=== PATIENT | female | born 1970 | race Caucasian/White ===

== ENCOUNTER 2021-12-21 10:30 | Emergency (ER) | payer MEDICAID, OTHER ==
[~2021-12-21] VITALS: Ht 165.1 cm; Wt 62.1 kg
[~2021-12-21 10:30] MED LIST: [UNRECOGNIZED DRUG - CODE]
[2021-12-21 10:32] VITALS: BP 157/88
--- NOTE | 2021-12-21 10:38 | NUR ---
pt ambulated to bed 04 with walker
--- NOTE | 2021-12-21 10:54 | NUR ---
51 y/o female came in for swelling to bilateral feet. Patient states "she started having swelling in bilateral feet and is now radiating to upper thighs for 5-6 months." Patient was told she has neuropathy by PCP. Patient is noted with edema to bilateral legs. Patient feet are warm and dry with no heat radiating from them. Medical History: DM Type 2 Allergy: tylenol with codeine (hives)
--- NOTE | 2021-12-21 10:55 | NUR ---
Dr. Lozano at bedside evaluating patient.
--- NOTE | 2021-12-21 11:05 | NUR ---
Dr. Lozano performing ultrasound at bedside.
--- NOTE | 2021-12-21 11:13 | NUR ---
CPT Maryam at bedside drawing labs.
--- NOTE | 2021-12-21 11:20 | NUR ---
X-Ray at bedside.
[2021-12-21 11:29] LABS: BASOPHILS % (AUTO) 0.4 % (0.0-2.0); EOSINOPHILS # (AUTO) 0.1 K/uL (0-0.4); EOSINOPHILS % (AUTO) 1.2 % (0.0-4.0); HEMOGLOBIN 10.3 g/dL (12.0-16.0); LYMPHOCYTES # (AUTO) 1.2 K/uL (2.5-16.5); LYMPHOCYTES % (AUTO) 23.6 % (20.5-51.1); MEAN CORPUSCULAR HEMOGLOBIN 29 pg (27-31); MEAN CORPUSCULAR HGB CONC 35 g/dL (33-37); MEAN CORPUSCULAR VOLUME 81.8 fL (80-94); MONOCYTES # (AUTO) 0.2 K/uL (0.8-1.0); NEUTROPHILS # (AUTO) 3.5 K/uL (1.8-7.7); NEUTROPHILS % (AUTO) 70.8 % (42.2-75.2); PLATELET COUNT (AUTO) 286 K/uL (140-450); RED BLOOD CELL COUNT(AUTO) 3.55 MIL/uL (4.20-5.40); RED CELL DISTRIBUTION WIDTH 14.2 % (11.6-13.7)
[2021-12-21] MEDS ORDERED: FUROSEMIDE 40 MG TAB PO ONE (11:40)
[2021-12-21 11:50] LABS: ALBUMIN 1.7 g/dL (3.4-5.0); CARBON DIOXIDE 28.4 mmol/L (21-32); TOTAL BILIRUBIN 0.5 mg/dL (0.0-1.0)
[2021-12-21 11:51] LABS: CREATININE 0.6 mg/dL (0.6-1.3)
[2021-12-21 11:54] LABS: ANION GAP 8.8 (8-16); POTASSIUM 3.2 mmol/L (3.5-5.1)
[2021-12-21] MEDS ORDERED: POTASSIUM CHLORIDE 10 MEQ TABER PO ONE (12:00)
[2021-12-21] MEDS ORDERED: CALCIUM CARB 600 MG TAB PO SCH (12:00)
[2021-12-21] MEDS ORDERED: INSULIN REGULAR, HUMAN 100 UNIT/ML VIAL IVP ONE (12:00)
[2021-12-21] MEDS ORDERED: GABA300C PO (12:17)
[2021-12-21 13:12] VITALS: BP 143/79
--- NOTE | 2021-12-21 13:12 | NUR ---
Patient discharged with v/s stable. Written and verbal after care instructions given. Patient alert, oriented and verbalized understanding of instructions. Ambulatory with steady gait. All questions addressed prior to discharge. ID band removed. Patient advised to follow up with PMD. Rx of Gabapentin given. Opportunity to ask questions provided and answered.
== END 2021-12-21 13:12 | disposition home or self-care (01) ==
LOC: MED 10:30
DX: R60.0 Localized edema (principal); E11.40 Type 2 diabetes mellitus with diabetic neuropathy, unspecified; I10 Essential (primary) hypertension; E78.5 Hyperlipidemia, unspecified; D64.9 Anemia, unspecified; E83.51 Hypocalcemia; E87.6 Hypokalemia; E88.09 Other disorders of plasma-protein metabolism, not elsewhere classified; Z79.4 Long term (current) use of insulin; Z88.5 Allergy status to narcotic agent
CPT/HCPCS: 36415; 71045; 80053; 83880; 85025; 96374; 99284; J1815

== ENCOUNTER 2021-12-28 09:17 | Emergency (ER) | payer OTHER ==
[~2021-12-28] VITALS: Ht 165.1 cm; Wt 61.2 kg
[~2021-12-28 09:17] MED LIST changes: +GABA300C PO
[2021-12-28 09:19] VITALS: BP 160/91
[2021-12-28] MEDS ORDERED: KETOROLAC 15 MG/ML VIAL IVP ONE ×2 (09:45→13:05)
[2021-12-28] MEDS ORDERED: NACL 0.9% 1,000 ML IV ONE ×2 (09:45→15:20)
[2021-12-28] MEDS ORDERED: ACETAMINOPHEN EXTRA STRENGTH 500 MG TAB PO ONE (09:45)
[2021-12-28] MEDS ORDERED: LIDOCAINE 5% 1 EA PATCH TP SCH (09:50)
[2021-12-28 10:05] LABS: BASOPHILS % (AUTO) 0.4 % (0.0-2.0); EOSINOPHILS # (AUTO) 0.1 K/uL (0-0.4); EOSINOPHILS % (AUTO) 0.7 % (0.0-4.0); HEMATOCRIT 30.4 % (36-48); HEMOGLOBIN 10.6 g/dL (12.0-16.0); LYMPHOCYTES # (AUTO) 0.9 K/uL (2.5-16.5); LYMPHOCYTES % (AUTO) 9.7 % (20.5-51.1); MEAN CORPUSCULAR HEMOGLOBIN 29 pg (27-31); MEAN CORPUSCULAR HGB CONC 35 g/dL (33-37); MEAN CORPUSCULAR VOLUME 82.5 fL (80-94); MONOCYTES # (AUTO) 0.4 K/uL (0.8-1.0); MONOCYTES % (AUTO) 4.8 % (1.7-9.3); NEUTROPHILS # (AUTO) 7.8 K/uL (1.8-7.7); NEUTROPHILS % (AUTO) 84.4 % (42.2-75.2); PLATELET COUNT (AUTO) 335 K/uL (140-450); RED BLOOD CELL COUNT(AUTO) 3.69 MIL/uL (4.20-5.40); RED CELL DISTRIBUTION WIDTH 13.8 % (11.6-13.7); WHITE BLOOD COUNT (AUTO) 9.2 K/uL (4.8-10.8)
[2021-12-28 10:44] LABS: ALBUMIN 1.8 g/dL (3.4-5.0); ANION GAP 12.1 (8-16); CARBON DIOXIDE 26.1 mmol/L (21-32); CREATININE 0.7 mg/dL (0.6-1.3); POTASSIUM 3.2 mmol/L (3.5-5.1); TOTAL BILIRUBIN 0.7 mg/dL (0.0-1.0)
[2021-12-28 11:26] LABS: APPEARANCE,URINE HAZY (CLEAR); BILIRUBIN,URINE NEGATIVE (NEGATIVE); BLOOD, URINE 2+ (NEGATIVE); COLOR,URINE YELLOW (YELLOW); LEUKOCYTE ESTERASE ,URINE NEGATIVE (NEGATIVE); NITRITE, URINE NEGATIVE (NEGATIVE); UGLUCOSE 3+ (NEGATIVE)
[2021-12-28] MEDS ORDERED: POTASSIUM CHLORIDE 10 MEQ TABER PO ONE (11:35)
[2021-12-28 11:36] LABS: WBC,URINE 0-5 /HPF (0-5)
[2021-12-28 11:54] VITALS: BP 156/67
[2021-12-28] MEDS ORDERED: ACET-10509 PO (13:06)
[2021-12-28] MEDS ORDERED: LID5T TP (13:06)
[2021-12-28] MEDS ORDERED: NAPR-54 PO (13:06)
[2021-12-28] MEDS ORDERED: INSULIN LISPRO 100 UNITS/ML VIAL SUBQ ONE (13:20)
== END 2021-12-28 15:30 | disposition home or self-care (01) ==
LOC: MED 09:17
DX: S32.029A Unspecified fracture of second lumbar vertebra, initial encounter for closed fracture (principal); E11.65 Type 2 diabetes mellitus with hyperglycemia; Z88.5 Allergy status to narcotic agent; Z98.890 Other specified postprocedural states; Z79.4 Long term (current) use of insulin; W19.XXXA Unspecified fall, initial encounter; Y93.89 Activity, other specified; Y92.89 Other specified places as the place of occurrence of the external cause; Y99.8 Other external cause status
CPT/HCPCS: 36415; 72131; 80053; 81001; 82150; 83605; 83690; 85025; 87040; 96361; 96372; 96374; 96375; 99284; J1815; J1885; J7030

== ENCOUNTER 2022-04-04 13:31 | Emergency (ER) | payer OTHER ==
[~2022-04-04] VITALS: Ht 157.5 cm; Wt 81.6 kg
[~2022-04-04 13:31] MED LIST changes: +ACET-10509 PO; +ATOR10TA PO; +FERR325E14 PO; +FURO-570 PO; +LID5T TP; +NAPR-54 PO; +POTA8TAB19 PO
[2022-04-04 14:07] VITALS: BP 144/83
--- NOTE | 2022-04-04 14:11 | NUR ---
PT AMB TO BED 8.
--- NOTE | 2022-04-04 14:30 | NUR ---
52YO FEMALE PT C/O SHARP/CRAMPING 10/10 LOWER AND EPIGASTRIC ABDOMINAL PAIN X2 DAYS. PT STATES SHE HAS HAD CONSISTENT PAIN AND MILD RELIEF AFTER TAKING TYLENOL. PT ABDOMEN TENDER TO TOUCH , NON DISTENDED , ACTIVE X4. PT STATES MILD NAUSEA AT THIS TIME, DENIES V/D OR DYSURIA . PT ALSO C/O SHARP 10/10 LOWER BACK PAIN DUE TO LUMBER FRACTURE BACK IN DECEMBER. PT DENIES RECENT NEW INJURY OR PHYSICAL ACTIVITY. BACK NON TENDER TO TOUCH, PT UNABLE TO BEND AT WAIST. PT AMBULATES W/ ASSIST USING WALKER. PT AAOX4, IN VISIBLE DISTRESS AND RUBBING ABDOMEN FOR COMFORT. RESPIRATIONS EVEN AND UNLABORED. HOB POSITIONED PER PT COMFORT. HX: DIABETES
--- NOTE | 2022-04-04 15:12 | NUR ---
PT AMBULATED W/WALKER TO RESTROOM
[2022-04-04 15:14] LABS: BASOPHILS % (AUTO) 0.2 % (0.0-2.0); EOSINOPHILS # (AUTO) 0.1 K/uL (0-0.4); EOSINOPHILS % (AUTO) 1.5 % (0.0-4.0); HEMATOCRIT 26.6 % (36-48); HEMOGLOBIN 9.2 g/dL (12.0-16.0); LYMPHOCYTES # (AUTO) 1.7 K/uL (2.5-16.5); MEAN CORPUSCULAR HEMOGLOBIN 29 pg (27-31); MEAN CORPUSCULAR HGB CONC 35 g/dL (33-37); MEAN CORPUSCULAR VOLUME 82.4 fL (80-94); MONOCYTES # (AUTO) 0.3 K/uL (0.8-1.0); NEUTROPHILS # (AUTO) 3.7 K/uL (1.8-7.7); NEUTROPHILS % (AUTO) 64.3 % (42.2-75.2); PLATELET COUNT (AUTO) 300 K/uL (140-450); RED BLOOD CELL COUNT(AUTO) 3.23 MIL/uL (4.20-5.40); RED CELL DISTRIBUTION WIDTH 15.9 % (11.6-13.7); WHITE BLOOD COUNT (AUTO) 5.8 K/uL (4.8-10.8)
[2022-04-04 15:32] LABS: ALBUMIN 2.2 g/dL (3.4-5.0); ANION GAP 9.3 (8-16); CARBON DIOXIDE 23.9 mmol/L (21-32); CREATININE 0.9 mg/dL (0.6-1.3); POTASSIUM 4.2 mmol/L (3.5-5.1); TOTAL BILIRUBIN 0.5 mg/dL (0.0-1.0)
[2022-04-04] MEDS ORDERED: KETOROLAC 30 MG/ML VIAL IM ONE (16:00)
[2022-04-04] MEDS ORDERED: LID5T TP (16:16)
[2022-04-04] MEDS ORDERED: TRAM50TA1 PO (16:18)
[2022-04-04] MEDS ORDERED: CEPH-588 PO (16:22)
[2022-04-04 16:30] VITALS: BP 140/80
--- NOTE | 2022-04-04 16:34 | NUR ---
Patient discharged with v/s stable. Written and verbal after care instructions given and explained. Patient alert, oriented and verbalized understanding of instructions. Ambulatory with steady gait. All questions addressed prior to discharge. ID band removed. Patient advised to follow up with PMD. Rx of KEFLEX,LIDODERM,ULTRAM given. Patient educated on indication of medication including possible reaction and side effects. Opportunity to ask questions provided and answered.
== END 2022-04-04 16:30 | disposition home or self-care (01) ==
LOC: MED 13:31
DX: R10.9 Unspecified abdominal pain (principal); M54.50 Low back pain, unspecified; R31.9 Hematuria, unspecified; E11.9 Type 2 diabetes mellitus without complications; Z88.5 Allergy status to narcotic agent; Z79.4 Long term (current) use of insulin; Z79.899 Other long term (current) drug therapy
CPT/HCPCS: 36415; 74176; 80053; 81002; 81025; 83690; 85025; 96372; 99284; J1885

== ENCOUNTER 2022-04-26 11:31 | Emergency (ER) | payer OTHER ==
[~2022-04-26] VITALS: Ht 157.5 cm; Wt 92.1 kg
[~2022-04-26 11:31] MED LIST changes: +CEPH-588 PO; +TRAM50TA1 PO
[2022-04-26 11:41] VITALS: BP 116/80
--- NOTE | 2022-04-26 11:46 | NUR ---
PT AMBULATED WITH WALKER TO BED 10
--- NOTE | 2022-04-26 12:00 | NUR ---
52 Y/O FEMALE W/ C/O CHEST PAIN X 2 DAYS. REPORTS CHEST PAIN DOES NOT RADIATE AND "FEELS LIKE NEEDLES" RATING 9/10. REPORTS TINGLING SENSATION IN ALL EXTREMITIES. DENIES SOB, FEVER, CHILLS, NVD, DYSURIA. TOOK TYLENOL YESTERDAY WITH NO RELIEF. SKIN IS WARM AND DRY, +2 PITTING EDEMA TO BLE. RESPIRATIONS EVEN AND UNLABORED. PLACED IN GOWN AND ON ACCOUNT CONTACT ASSOCIATE. PMH: DM ALL: CODEINE
--- NOTE | 2022-04-26 12:10 | NUR ---
LAB AT BEDSIDE
[2022-04-26 12:30] LABS: BASOPHILS % (AUTO) 0.5 % (0.0-2.0); EOSINOPHILS # (AUTO) 0.1 K/uL (0-0.4); EOSINOPHILS % (AUTO) 1.6 % (0.0-4.0); HEMATOCRIT 27.7 % (36-48); HEMOGLOBIN 9.6 g/dL (12.0-16.0); LYMPHOCYTES # (AUTO) 1.6 K/uL (2.5-16.5); LYMPHOCYTES % (AUTO) 28.3 % (20.5-51.1); MEAN CORPUSCULAR HEMOGLOBIN 29 pg (27-31); MEAN CORPUSCULAR HGB CONC 35 g/dL (33-37); MEAN CORPUSCULAR VOLUME 82.8 fL (80-94); MONOCYTES # (AUTO) 0.3 K/uL (0.8-1.0); MONOCYTES % (AUTO) 5.9 % (1.7-9.3); NEUTROPHILS # (AUTO) 3.6 K/uL (1.8-7.7); NEUTROPHILS % (AUTO) 63.7 % (42.2-75.2); PLATELET COUNT (AUTO) 325 K/uL (140-450); RED BLOOD CELL COUNT(AUTO) 3.35 MIL/uL (4.20-5.40); RED CELL DISTRIBUTION WIDTH 15.6 % (11.6-13.7); WHITE BLOOD COUNT (AUTO) 5.7 K/uL (4.8-10.8)
[2022-04-26 12:35] LABS: ALBUMIN 2.5 g/dL (3.4-5.0); ANION GAP 10.6 (8-16); ASPARTATE AMINOTRANSFERASE 26 U/L (15-37); CARBON DIOXIDE 23.7 mmol/L (21-32); CHLORIDE 109 mmol/L (98-107); CREATININE 0.8 mg/dL (0.6-1.3); GFR ARICAN-AMERICAN 98 mL/min (>90); GLUCOSE 203 mg/dL (74-106); POTASSIUM 4.3 mmol/L (3.5-5.1); SODIUM SERUM 139 mmol/L (136-145); TOTAL BILIRUBIN 0.5 mg/dL (0.0-1.0); UREA NITROGEN, BLOOD 33 mg/dL (7-18)
--- NOTE | 2022-04-26 13:13 | NUR ---
PT AMBULATED TO BATHROOM WITH ASSISTIVE DEVICE (WALKER)
[2022-04-26] MEDS ORDERED: ACETAMINOPHEN EXTRA STRENGTH 500 MG TAB PO ONE (13:35)
[2022-04-26] MEDS ORDERED: IBUP-2213 PO (15:03)
[2022-04-26 15:15] VITALS: BP 177/89
== END 2022-04-26 15:15 | disposition home or self-care (01) ==
LOC: MED 11:31
DX: R07.89 Other chest pain (principal); E11.9 Type 2 diabetes mellitus without complications; Z88.5 Allergy status to narcotic agent; Z79.899 Other long term (current) drug therapy; Z79.4 Long term (current) use of insulin
CPT/HCPCS: 36415; 71045; 80053; 81025; 84484; 84702; 85025; 85379; 93005; 99285

== ENCOUNTER 2023-03-26 11:15 | Inpatient (IN) | payer OTHER ==
[~2023-03-26] VITALS: Ht 167.6 cm; Wt 72.6 kg
[~2023-03-26 11:15] MED LIST changes: +IBUP-2213 PO; +TRAM-748 PO; -TRAM50TA1 PO
--- NOTE | 2023-03-26 11:29 | NUR ---
Patient was wheelchair assisted to bed 4.
--- NOTE | 2023-03-26 11:29 | NUR ---
PATIENT WHEELCHAIR ASSIST TO ER BED 04
[2023-03-26] MEDS ORDERED: HYDROcodone/APAP 10/325 MG 1 TAB TAB PO PRN (11:30)
[2023-03-26 11:38] VITALS: BP 121/68; PULSE 68; RESP 20; TEMP 98.1; O2SAT 98
--- NOTE | 2023-03-26 11:40 | NUR ---
Patient was assisted to bedpan.
--- NOTE | 2023-03-26 11:45 | NUR ---
Patient was taken to CT via [facility].
--- NOTE | 2023-03-26 11:55 | NUR ---
Patient returned from CT.
[2023-03-26] MEDS ORDERED: MORPHINE SULFATE 4 MG/ML SYR IM ONE (12:00)
[2023-03-26] MEDS ORDERED: MORPHINE SULFATE 4 MG/ML SYR IVP ONE (13:40)
[2023-03-26] MEDS ORDERED: NACL 0.9% 500 ML IV ONE (13:40)
--- NOTE | 2023-03-26 13:48 | NUR ---
Dr. Hernandez re-evaluating patient at bedside.
[2023-03-26 13:49] LABS: ALBUMIN 1.1 g/dL (3.4-5.0); ANION GAP 14.3 (8-16); CARBON DIOXIDE 21.2 mmol/L (21-32); POTASSIUM 4.5 mmol/L (3.5-5.1); TOTAL BILIRUBIN 0.2 mg/dL (0.0-1.0)
[2023-03-26] MEDS ORDERED: NOV7030 SUBQ ×2 (14:24)
--- NOTE | 2023-03-26 14:24 | NUR ---
med rec complete.
[2023-03-26 14:38] LABS: BASOPHILS % (AUTO) 0.3 % (0.0-2.0); EOSINOPHILS # (AUTO) 0.1 K/uL (0-0.4); EOSINOPHILS % (AUTO) 2.1 % (0.0-4.0); HEMATOCRIT 24.3 % (36-48); HEMOGLOBIN 8.4 g/dL (12.0-16.0); LYMPHOCYTES # (AUTO) 1.6 K/uL (2.5-16.5); LYMPHOCYTES % (AUTO) 28.1 % (20.5-51.1); MEAN CORPUSCULAR HEMOGLOBIN 28 pg (27-31); MEAN CORPUSCULAR HGB CONC 34 g/dL (33-37); MEAN CORPUSCULAR VOLUME 82.1 fL (80-94); MONOCYTES # (AUTO) 0.4 K/uL (0.8-1.0); MONOCYTES % (AUTO) 6.5 % (1.7-9.3); NEUTROPHILS # (AUTO) 3.6 K/uL (1.8-7.7); PLATELET COUNT (AUTO) 292 K/uL (140-450); RED BLOOD CELL COUNT(AUTO) 2.96 MIL/uL (4.20-5.40); RED CELL DISTRIBUTION WIDTH 13.5 % (11.6-13.7); WHITE BLOOD COUNT (AUTO) 5.7 K/uL (4.8-10.8)
--- NOTE | 2023-03-26 16:06 | NUR ---
Patient was offered snacks.
[2023-03-26] MEDS ORDERED: ACETAMINOPHEN 325 MG TAB PO PRN (17:20)
[2023-03-26] MEDS ORDERED: LORazepam 1 MG TAB PO PRN (17:20)
[2023-03-26] MEDS ORDERED: ZOLPIDEM 5 MG TAB PO PRN (17:20)
[2023-03-26] MEDS ORDERED: CLINICAL MONITORING MC PRN (18:10)
--- NOTE | 2023-03-26 18:36 | NUR ---
Dr. Chong, admitting doctor, evaluating patient at bedside.
--- NOTE | 2023-03-26 18:45 | NUR ---
Patient was offered dinner tray, patient is sitting up eating.
[2023-03-26] MEDS: ONDANSETRON 4 MG/2 ML VIAL IVP PRN ×2 (18:53→20:36)
--- NOTE | 2023-03-26 19:24 | NUR ---
Pt report given to MUNDO Nuñez. Transfer of care at this time.
--- NOTE | 2023-03-26 20:15 | NUR ---
Patient will be admitted to care of Dr. Chong. Admited to [facility]. Will go to room 107A. Belongings list completed. Report to Leonides FLOWER.
[2023-03-26 20:42] VITALS: BP 159/88; PULSE 76; RESP 18; TEMP 96.6; O2SAT 99
--- NOTE | 2023-03-26 20:42 | NUR ---
RECEIVED REPORT FROM ER NURSE FOR CONTINUITY OF CARE. PT ARRIVED ON MST UNIT VIA GURNEY. PT IS AWAKE, A&O X4. CURRENTLY ON ROOM AIR WITH NO SIGNS OF ACUTE RESPIRATORY DISTRESS NOTED. PATIENT IS ON BEDREST AT THIS TIME DUE TO HIP FRACTURE. IV SITE LOCATED AT LEFT AC 20 GAUGE, SALINE LOCK, FLUSHED FOR PATENCY. ORIENTED PATIENT TO BEDROOM, BED CONTROLS, AND CALL LIGHT CONTROLS. WILL MONITOR PATIENT THROUGHOUT SHIFT AND IMPLEMENT PAIN MANAGEMENT INTERVENTIONS NEEDED.
[2023-03-26 20:50] VITALS: O2SAT 99
--- NOTE | 2023-03-27 01:00 | NUR ---
PT SLEEPING COMFORTABLY AT THIS TIME. RESPIRATIONS EVEN AND UNLABORED, NO SIGNS OF DISTRESS NOTED, WILL CONTINUE TO MONITOR.
--- NOTE | 2023-03-27 03:45 | NUR ---
PROVIDED PATIENT 2X WARM BLANKETS PER PATIENT REQUEST. DENIES PAIN AT THIS TIME. VITAL SIGNS WNL. RESPIRATIONS EVEN AND UNLABORED WITH NO APPARENT S/SX OF ACUTE DISTRESS. ALL SAFETY MEASURES IN PLACE. BED IN LOW/LOCKED POSITION. CALL LIGHT WITHIN REACH. WILL CONTINUE TO MONITOR.
[2023-03-27 04:00] VITALS: BP 140/81; PULSE 72; RESP 16; TEMP 97.6; O2SAT 99
[2023-03-27] MEDS: HYDROcodone/APAP 5/325 MG 1 TAB TAB PO PRN ×2 (05:00→20:45)
[2023-03-27 06:17] LABS: BASOPHILS % (AUTO) 0.2 % (0.0-2.0); EOSINOPHILS # (AUTO) 0.1 K/uL (0-0.4); EOSINOPHILS % (AUTO) 2.1 % (0.0-4.0); HEMATOCRIT 26.6 % (36-48); HEMOGLOBIN 9.2 g/dL (12.0-16.0); LYMPHOCYTES # (AUTO) 1.2 K/uL (2.5-16.5); LYMPHOCYTES % (AUTO) 23.8 % (20.5-51.1); MEAN CORPUSCULAR HEMOGLOBIN 29 pg (27-31); MEAN CORPUSCULAR HGB CONC 35 g/dL (33-37); MEAN CORPUSCULAR VOLUME 83.3 fL (80-94); MONOCYTES # (AUTO) 0.3 K/uL (0.8-1.0); MONOCYTES % (AUTO) 6.6 % (1.7-9.3); NEUTROPHILS # (AUTO) 3.4 K/uL (1.8-7.7); NEUTROPHILS % (AUTO) 67.3 % (42.2-75.2); PLATELET COUNT (AUTO) 330 K/uL (140-450); RED CELL DISTRIBUTION WIDTH 13.5 % (11.6-13.7)
[2023-03-27 06:54] LABS: ALBUMIN 1.1 g/dL (3.4-5.0); ANION GAP 11.7 (8-16); CARBON DIOXIDE 23.1 mmol/L (21-32); CREATININE 1.8 mg/dL (0.6-1.3); POTASSIUM 3.8 mmol/L (3.5-5.1); TOTAL BILIRUBIN 0.2 mg/dL (0.0-1.0)
--- NOTE | 2023-03-27 07:49 | NUR ---
RECEIVED PATIENT FROM PM NURSE FOR CONTINUATION OF CARE. PATIENT SEEN ON BED ASLEEP. NORMAL RISE AND FALL OF CHEST
[2023-03-27] MEDS: DOCUSATE SODIUM 100 MG GELCAP PO SCH (08:31)
[2023-03-27] MEDS: ENOXAPARIN 40 MG/0.4 ML SYR SUBQ SCH (08:34)
--- NOTE | 2023-03-27 10:15 | NUR ---
P.T. NOTES P.T. EVAL COMPLETED; REFER TO EVAL FOR DETAILS.
--- NOTE | 2023-03-27 10:25 | NUR ---
PATIENT HAS BEEN SCREENED AND CATEGORIZED MODERATE NUTRITION RISK. PATIENT WILL BE SEEN WITHIN 3-5 DAYS OF ADMISSION. [address]
[2023-03-27] MEDS ORDERED: DEXTROSE 50% 50 ML SYR IVP PRN (12:35)
[2023-03-27] MEDS: GABAPENTIN 300 MG CAP PO SCH ×2 (13:00→17:57)
[2023-03-27] MEDS: INSULIN LANTUS 100 UNITS/ML 10 ML VIAL SUBQ SCH (14:16)
--- NOTE | 2023-03-27 14:20 | NUR ---
Order received for SNF placement for physical therapy. corrections unit supervisor spoke with Sofia at [facility] to confirm list of local contracted SNF's. corrections unit supervisor then spoke with the patient at bedside to discuss SNF placement. The patient states she's in agreement with going to SNF for P.T. and understands that she will be referred to SNF's in [facility]. Packet faxed to [facility] and Josi Koenig, [facility], [facility] and [facility]. Addendum: 03/28/23 at 0908 by Mely Zaragoza CM corrections unit supervisor spoke with Ailyn ([phone]) from [facility], the patient is accepted to room 707B, Dr. Chong will continue to follow. Spoke with the patient at bedside regarding transfer to SNF today, patient is in agreement with going to [facility] and states she will call her daughter to let her know. Message left for Shane at [facility] ([phone]) asking for authorization for SNF. Transport will be arranged once authorization is received and given to [facility]. Addendum: 03/28/23 at 1049 by Mely Zaragoza CM Per Shane at [facility], PAS[facility] form needs to be completed before [facility] auth can be given for SNF. corrections unit supervisor has not been registered for access to form, will endorse to case management to complete form tomorrow for SNF placement. Shane will have authorization ready for transfer tomorrow, Ailyn at [facility] notified of delay. corrections unit supervisor also spoke with the patient at bedside to inform her of the delay and the reason, patients RN also aware.
[2023-03-27 16:00] VITALS: BP 120/78; PULSE 80; RESP 17; TEMP 97.2; O2SAT 99
[2023-03-27] MEDS: BLOOD GLUCOSE MONITORING 1 DEV DEV FS SCH ×2 (16:30→20:45)
[2023-03-27] MEDS: INSULIN LISPRO SLIDING SCALE 100 UNITS/ML VIAL SUBQ PRN ×2 (17:55→20:49)
--- NOTE | 2023-03-27 19:20 | NUR ---
ENDORSED PATIENT TO PM NURSE FOR CONTINUATION OF CARE.
--- NOTE | 2023-03-27 19:21 | NUR ---
RECEIVED REPORT FROM DAY SHIFT NURSE ISADORA FOR CONTINUITY OF CARE. PT A/A/O. RESPIRATIONS EVEN AND UNLABORED ON RA. NO COMPLAINTS OF PAIN. IV SITE ON LAC LEAKING WILL ATTEMPT TO INSERT A NEW IV LINE. POC DISCUSSED. REPORT GIVEN TO MUNDO MORENO. CALL LIGHT WITHIN REACH. SAFETY PRECAUTIONS IN PLACE.
[2023-03-27 20:00] VITALS: BP 108/66; PULSE 86; RESP 18; TEMP 97.5; O2SAT 98
--- NOTE | 2023-03-27 20:00 | NUR ---
Patient's Plan of Care was discussed and reviewed with MARLINE RODRÍGUEZ:
--- NOTE | 2023-03-27 20:53 | NUR ---
SLIDING SCALE INSULIN ADMINISTERED FOR BS 276. PT COMPLAINED OF HEADACHE AND RIGHT HIP PAIN 7/10. PRN PAIN MED GIVEN PER MD ORDER. V/S WITHIN NORMAL LIMITS.
--- NOTE | 2023-03-27 21:40 | NUR ---
NEW IV LINE INSERTED. IV SITE NOW ON LEFT HAND 22G, SL. FLUSHING WELL, WITH BLOOD RETURNS.
--- NOTE | 2023-03-27 22:46 | NUR ---
ENDORSED PT TO MUNDO MORENO FOR CONTINUITY OF CARE. PT IS STABLE.
--- NOTE | 2023-03-27 22:50 | NUR ---
RECEIVED PT IN BED ASLEEP. NO S/SX OF PAIN NOR DISCOMFORT. NO ACUTE RESPIRATORY DISTRESS. BED IN THE LOWEST AND LOCKED POSITION FOR SAFETY, CALL LIGHT WITHIN REACH.
--- NOTE | 2023-03-28 00:52 | NUR ---
PATIENT IS ASLEEP. BREATHING EVEN AND UNLABORED. CALL LIGHT WITHIN REACH.
[2023-03-28 04:00] VITALS: BP 103/59; PULSE 75; RESP 18; TEMP 97.8; O2SAT 99
--- NOTE | 2023-03-28 05:00 | NUR ---
PATIENT REFUSED AM CARE. SAFETY PRECAUTIONS IN PLACE, CALL LIGHT WITHIN REACH.
--- NOTE | 2023-03-28 06:15 | NUR ---
PATIENT IS ASLEEP. NO DISTRESS NOTED. ALL NEEDS ATTENDED TO. SAFETY PRECAUTIONS MAINTAINED DURING THE SHIFT, CALL LIGHT REMAINS WITHIN REACH.
[2023-03-28] MEDS: BLOOD GLUCOSE MONITORING 1 DEV DEV FS SCH ×4 (06:34→20:31)
--- NOTE | 2023-03-28 07:38 | NUR ---
GOT REPORT FROM THE NIGHT NURSE, PT SLEEPING , NO SOB. [id number]
[2023-03-28 08:00] VITALS: PULSE 70; RESP 17; O2SAT 98
[2023-03-28 08:56] LABS: BASOPHILS % (AUTO) 0.2 % (0.0-2.0); EOSINOPHILS # (AUTO) 0.1 K/uL (0-0.4); EOSINOPHILS % (AUTO) 1.7 % (0.0-4.0); HEMATOCRIT 23.6 % (36-48); HEMOGLOBIN 8.4 g/dL (12.0-16.0); LYMPHOCYTES # (AUTO) 1.7 K/uL (2.5-16.5); LYMPHOCYTES % (AUTO) 23.5 % (20.5-51.1); MEAN CORPUSCULAR HEMOGLOBIN 29 pg (27-31); MEAN CORPUSCULAR HGB CONC 36 g/dL (33-37); MEAN CORPUSCULAR VOLUME 81.2 fL (80-94); MONOCYTES # (AUTO) 0.5 K/uL (0.8-1.0); MONOCYTES % (AUTO) 6.5 % (1.7-9.3); NEUTROPHILS # (AUTO) 5.1 K/uL (1.8-7.7); NEUTROPHILS % (AUTO) 68.1 % (42.2-75.2); PLATELET COUNT (AUTO) 336 K/uL (140-450); RED BLOOD CELL COUNT(AUTO) 2.91 MIL/uL (4.20-5.40); RED CELL DISTRIBUTION WIDTH 13.5 % (11.6-13.7); WHITE BLOOD COUNT (AUTO) 7.4 K/uL (4.8-10.8)
[2023-03-28] MEDS: DOCUSATE SODIUM 100 MG GELCAP PO SCH (09:15)
[2023-03-28] MEDS: GABAPENTIN 300 MG CAP PO SCH ×2 (09:15→17:17)
[2023-03-28] MEDS: FUROSEMIDE 40 MG TAB PO SCH (09:16)
[2023-03-28] MEDS: ENOXAPARIN 40 MG/0.4 ML SYR SUBQ SCH (09:18)
[2023-03-28 09:19] LABS: ALBUMIN 1.1 g/dL (3.4-5.0); ANION GAP 13.2 (8-16); CARBON DIOXIDE 20.9 mmol/L (21-32); CREATININE 2.1 mg/dL (0.6-1.3); MAGNESIUM 1.9 mg/dL (1.8-2.4); POTASSIUM 4.1 mmol/L (3.5-5.1); TOTAL BILIRUBIN 0.2 mg/dL (0.0-1.0)
[2023-03-28] MEDS: INSULIN LANTUS 100 UNITS/ML 10 ML VIAL SUBQ SCH (09:20)
--- NOTE | 2023-03-28 11:00 | NUR ---
PT ON THE PHONE TALKING NO PAIN.[email or web address]
[2023-03-28 12:00] VITALS: BP 103/59; PULSE 70; RESP 17; TEMP 97.8; O2SAT 98
--- NOTE | 2023-03-28 12:00 | NUR ---
GOT REPORT FROM THE NIGHT NURSE, PT SLEEPING , NO SOB. [id number]
--- NOTE | 2023-03-28 14:00 | NUR ---
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
--- NOTE | 2023-03-28 18:55 | NUR ---
PT IN BED, ON THE PHONE.[email or web address]
--- NOTE | 2023-03-28 19:28 | NUR ---
gave report to the night nurse, pt awake no pain.[email or web address]
--- NOTE | 2023-03-28 19:35 | NUR ---
RECEIVED PT IN BED AWAKE, ALERT AND ORIENTED X 4. DENIES PAIN AT THIS TIME. NO ACUTE RESPIRATORY DISTRESS. SKIN WARM AND DRY TO TOUCH. SAFETY PRECAUTIONS IN PLACE, CALL LIGHT PLACED WITHIN REACH, INSTRUCTED TO CALL IF ASSISTANCE IS NEEDED, PT VERBALLY ACKNOWLEDGED.
[2023-03-28 20:00] VITALS: BP 147/81; PULSE 87; RESP 18; TEMP 97.2; O2SAT 98
--- NOTE | 2023-03-28 20:30 | NUR ---
SCHEDULED MEDICATION GIVEN ORDERED. PATIENT TOLERATED WELL
[2023-03-28] MEDS ORDERED: ATORVASTATIN 20 MG TAB PO SCH (21:00)
--- NOTE | 2023-03-28 21:09 | NUR ---
INCONTINENT OF URINE, PERINEAL CARE RENDERED. MADE COMFORTABLE IN BED. CALL LIGHT PLACED WITHIN REACH.
--- NOTE | 2023-03-29 | NUR ---
PATIENT IS ASLEEP. BREATHING EVEN AND UNLABORED. CALL LIGHT WITHIN REACH.
[2023-03-29 04:00] VITALS: BP 123/66; PULSE 74; RESP 18; TEMP 97; O2SAT 97
[2023-03-29 05:38] LABS: BASOPHILS % (AUTO) 0.2 % (0.0-2.0); EOSINOPHILS # (AUTO) 0.1 K/uL (0-0.4); EOSINOPHILS % (AUTO) 1.2 % (0.0-4.0); HEMATOCRIT 24.2 % (36-48); HEMOGLOBIN 8.5 g/dL (12.0-16.0); LYMPHOCYTES # (AUTO) 1.7 K/uL (2.5-16.5); MEAN CORPUSCULAR HEMOGLOBIN 29 pg (27-31); MEAN CORPUSCULAR HGB CONC 35 g/dL (33-37); MONOCYTES # (AUTO) 0.6 K/uL (0.8-1.0); MONOCYTES % (AUTO) 7.1 % (1.7-9.3); NEUTROPHILS # (AUTO) 6.4 K/uL (1.8-7.7); NEUTROPHILS % (AUTO) 72.5 % (42.2-75.2); PLATELET COUNT (AUTO) 343 K/uL (140-450); RED BLOOD CELL COUNT(AUTO) 2.92 MIL/uL (4.20-5.40); RED CELL DISTRIBUTION WIDTH 13.6 % (11.6-13.7); WHITE BLOOD COUNT (AUTO) 8.8 K/uL (4.8-10.8)
--- NOTE | 2023-03-29 05:40 | NUR ---
BLOOD SUGAR CHECKED-60 MG/DL, REPEATED 60. FED PT. WILL RECHECK BLOOD SUGAR. NO S/SX OF HYPOGLYCEMIA. INCONTINENT OF URINE, AM CARE RENDERED. MADE COMFORTABLE IN BED. CALL LIGHT PLACED WITHIN REACH.
[2023-03-29 05:54] LABS: ALBUMIN 1.1 g/dL (3.4-5.0); ANION GAP 12.6 (8-16); CARBON DIOXIDE 22.5 mmol/L (21-32); CREATININE 2.1 mg/dL (0.6-1.3); MAGNESIUM 1.7 mg/dL (1.8-2.4); POTASSIUM 4.1 mmol/L (3.5-5.1); TOTAL BILIRUBIN 0.1 mg/dL (0.0-1.0)
--- NOTE | 2023-03-29 06:26 | NUR ---
BLOOD SUGAR RECHECKED-90 MG/DL. PATIENT CURRENTLY WATCHING ON HER PHONE. NO DISTRESS NOTED. ALL NEEDS ATTENDED TO. SAFETY PRECAUTIONS MAINTAINED DURING THE SHIFT, CALL LIGHT REMAINS WITHIN REACH.
[2023-03-29] MEDS: BLOOD GLUCOSE MONITORING 1 DEV DEV FS SCH ×3 (07:30→16:30)
[2023-03-29 08:00] VITALS: PULSE 86; RESP 18; O2SAT 100
[2023-03-29] MEDS ORDERED: LOV40I SUBQ (08:47)
[2023-03-29] MEDS: INSULIN LANTUS 100 UNITS/ML 10 ML VIAL SUBQ SCH (09:00)
[2023-03-29] MEDS ORDERED: MAGNESIUM OXIDE 400 MG TAB PO SCH (10:00)
[2023-03-29] MEDS: FUROSEMIDE 40 MG TAB PO SCH (10:00)
[2023-03-29] MEDS: ENOXAPARIN 40 MG/0.4 ML SYR SUBQ SCH (10:01)
[2023-03-29] MEDS: GABAPENTIN 300 MG CAP PO SCH ×3 (10:01→17:46)
[2023-03-29] MEDS: DOCUSATE SODIUM 100 MG GELCAP PO SCH (10:02)
--- NOTE | 2023-03-29 11:30 | NUR ---
SCREEN FOR LOW JG SCALE AT RISK, CONTINUE TO FOLLOW PRESSURE ULCER PREVENTION INTERVENTIONS. -TURN AND REPOSITION PATIENT Q 2H, ASSIST IF NEEDED -ASSESS AND MONITOR SKIN CONDITION DURING POSITION CHANGES -OFFLOAD BILATERAL HEELS BY PLACING PILLOWS UNDER CALVES AT ALL TIMES, UNLESS OTHERWISE CONTRAINDICATED -PRESSURE REDISTRIBUTION BY PLACING PILLOWS AND OFFLOADING SACRALCOCCYX -KEEP SKIN CLEAN AND DRY AT ALL TIMES.
[2023-03-29 13:46] VITALS: BP 150/82; PULSE 86; RESP 16; TEMP 97.7
--- NOTE | 2023-03-29 18:41 | NUR ---
PT INFORMED OF DC. DC EDUCATION PROVIDED. JASMINE OROSCO CONTACTED, REPORT GIVEN TO NURSE ARMOND. PT IV REMOVED, ID BAND REMOVED. PT PICKED UP AT [id number]. NO SIGNS OF DISTRESS, NO REPORTS OF PAIN OR DISCOMFORT.
== END 2023-03-29 18:35 | DRG 341 ==
LOC: MED 11:15 → MMU 17:22 → MTU 19:48
PROVIDERS: ADMIT Hospitalist; ATTEND Hospitalist
DX: S32.424A Nondisplaced fracture of posterior wall of right acetabulum, initial encounter for closed fracture (principal); E43 Unspecified severe protein-calorie malnutrition; S32.591A Other specified fracture of right pubis, initial encounter for closed fracture; E11.22 Type 2 diabetes mellitus with diabetic chronic kidney disease; E11.40 Type 2 diabetes mellitus with diabetic neuropathy, unspecified; M85.80 Other specified disorders of bone density and structure, unspecified site; I12.9 Hypertensive chronic kidney disease with stage 1 through stage 4 chronic kidney disease, or unspecified chronic kidney disease; E78.5 Hyperlipidemia, unspecified; Z20.822 Contact with and (suspected) exposure to COVID-19; W18.39XA Other fall on same level, initial encounter; E11.65 Type 2 diabetes mellitus with hyperglycemia; N18.30 Chronic kidney disease, stage 3 unspecified; Z88.5 Allergy status to narcotic agent; Z79.899 Other long term (current) drug therapy; Y93.89 Activity, other specified; Y92.89 Other specified places as the place of occurrence of the external cause; Y99.8 Other external cause status
CPT/HCPCS: 36415; 72192; 73700; 80053; 83735; 83880; 85025; 87081; 96361; 96372; 96374; 96375; 97110; 97112; 97116; 97530; 99285; J1650; J1815; J2270; J2405

== ENCOUNTER 2023-05-11 13:42 | Inpatient (IN) | payer OTHER ==
[~2023-05-11] VITALS: Ht 157.5 cm; Wt 55.8 kg
[~2023-05-11 13:42] MED LIST changes: -ACET-10509 PO; -CEPH-588 PO; -FERR325E14 PO; -IBUP-2213 PO; -LID5T TP; +LOV40I SUBQ; -NAPR-54 PO; +NOV7030 SUBQ; -POTA8TAB19 PO; -TRAM-748 PO; -[UNRECOGNIZED DRUG - CODE]
[2023-05-11 13:55] VITALS: BP 199/130; PULSE 82; RESP 20; TEMP 96.7; O2SAT 99
[2023-05-11 14:10] VITALS: O2SAT 99
[2023-05-11 14:58] LABS: BASOPHILS % (AUTO) 0.2 % (0.0-2.0); EOSINOPHILS # (AUTO) 0.1 K/uL (0-0.4); EOSINOPHILS % (AUTO) 2.3 % (0.0-4.0); HEMATOCRIT 23.5 % (36-48); LYMPHOCYTES # (AUTO) 1.4 K/uL (2.5-16.5); LYMPHOCYTES % (AUTO) 29.3 % (20.5-51.1); MEAN CORPUSCULAR HEMOGLOBIN 29 pg (27-31); MEAN CORPUSCULAR HGB CONC 34 g/dL (33-37); MEAN CORPUSCULAR VOLUME 84.7 fL (80-94); MONOCYTES # (AUTO) 0.3 K/uL (0.8-1.0); MONOCYTES % (AUTO) 6.5 % (1.7-9.3); NEUTROPHILS % (AUTO) 61.7 % (42.2-75.2); PLATELET COUNT (AUTO) 275 K/uL (140-450); RED BLOOD CELL COUNT(AUTO) 2.77 MIL/uL (4.20-5.40); RED CELL DISTRIBUTION WIDTH 15.1 % (11.6-13.7); WHITE BLOOD COUNT (AUTO) 4.9 K/uL (4.8-10.8)
[2023-05-11 15:19] LABS: INR 0.88 (0.8-1.2); PROTHROMBIN TIME 9.3 secs (10.8-13.4)
[2023-05-11 15:36] LABS: ALANINE AMINOTRANSFERASE 16 U/L (12-78); ALBUMIN 1.9 g/dL (3.4-5.0); ALKALINE PHOSPHATASE 154 U/L (50-136); ANION GAP 13.2 (8-16); ASPARTATE AMINOTRANSFERASE 16 U/L (15-37); CALCIUM 7.7 mg/dL (8.5-10.1); CHLORIDE 109 mmol/L (98-107); CREATININE 1.9 mg/dL (0.6-1.3); GFR ARICAN-AMERICAN 36 mL/min (>90); GFR NON ARICAN-AMERICAN 30 mL/min (>90); GLUCOSE 171 mg/dL (74-106); POTASSIUM 4.2 mmol/L (3.5-5.1); SODIUM SERUM 137 mmol/L (136-145); TOTAL BILIRUBIN 0.3 mg/dL (0.0-1.0); TOTAL PROTEIN, SERUM 5.5 g/dL (6.4-8.2); UREA NITROGEN, BLOOD 45 mg/dL (7-18)
[2023-05-11] MEDS ORDERED: NACL 0.9% 1,000 ML IV ONE (16:15)
[2023-05-11 16:46] VITALS: O2SAT 100
[2023-05-11] MEDS ORDERED: ZOLPIDEM 5 MG TAB PO PRN (16:50)
[2023-05-11] MEDS ORDERED: MAG SULF 2000 MG/WATER PREMIX 50 ML IV PRN (16:50)
[2023-05-11] MEDS ORDERED: HYDROcodone/APAP 5/325 MG 1 TAB TAB PO PRN (16:50)
[2023-05-11] MEDS ORDERED: KCL 20 MEQ IN 100 mL PREMIX 200 ML IV PRN (16:50)
[2023-05-11] MEDS ORDERED: LORazepam 1 MG TAB PO PRN (16:50)
[2023-05-11] MEDS ORDERED: MORPHINE SULFATE 4 MG/ML SYR IVP PRN (16:50)
[2023-05-11] MEDS ORDERED: ONDANSETRON 4 MG/2 ML VIAL IVP PRN (16:50)
[2023-05-11] MEDS ORDERED: DEXTROSE 50% 50 ML SYR IVP PRN (17:00)
[2023-05-11] MEDS: ASPIRIN 81 MG TAB.CHEW PO SCH (17:29)
[2023-05-11] MEDS ORDERED: hydrALAZINE 20 MG/ML VIAL IVP SCH (18:00)
[2023-05-11 20:15] VITALS: BP 189/91; PULSE 93; RESP 18; TEMP 97.1; O2SAT 98
[2023-05-11 20:25] VITALS: PULSE 94
[2023-05-11] MEDS: ATORVASTATIN 20 MG TAB PO SCH (20:32)
[2023-05-11] MEDS: INSULIN LISPRO SLIDING SCALE 100 UNITS/ML VIAL SUBQ PRN (20:33)
[2023-05-11] MEDS: hydrALAZINE 20 MG/ML VIAL IVP PRN (20:34)
[2023-05-11] MEDS: INSULIN NPH HUM/REG INSULIN HM 100 UNIT/ML 10 ML VIAL SUBQ SCH (20:37)
[2023-05-11] MEDS: BLOOD GLUCOSE MONITORING 1 DEV DEV FS SCH (20:37)
[2023-05-11 22:47] LABS: APPEARANCE,URINE CLEAR (CLEAR); BILIRUBIN,URINE NEGATIVE (NEGATIVE); BLOOD, URINE 2+ (NEGATIVE); COLOR,URINE YELLOW (YELLOW); LEUKOCYTE ESTERASE ,URINE NEGATIVE (NEGATIVE); NITRITE, URINE NEGATIVE (NEGATIVE); PH,URINE 5.5 (5.0-9.0); PROTEIN,URINE 3+ (NEGATIVE); UGLUCOSE 2+ (NEGATIVE); UROBILINOGEN,URINE 0.2 EU/dL (0.2 - 1)
[2023-05-11 23:08] LABS: BACTERIA,URINE >30 (MANY) /HPF (None Seen); MUCUS,URINE 1+ /LPF (None Seen); SQUAMOUS EPITHELIAL CELL,UR 0-3 (FEW) /LPF (0-3 (FEW))
[2023-05-12] VITALS (7 sets, daily range): BP systolic 126–169; BP diastolic 66–88; PULSE 81–92; RESP 16–18; TEMP 97.4–98.8; O2SAT 92–100
[2023-05-12] MEDS: ACETAMINOPHEN 325 MG TAB PO PRN ×2 (00:54→16:23)
[2023-05-12 06:21] LABS: BASOPHILS % (AUTO) 0.3 % (0.0-2.0); EOSINOPHILS # (AUTO) 0.1 K/uL (0-0.4); EOSINOPHILS % (AUTO) 2.2 % (0.0-4.0); LYMPHOCYTES # (AUTO) 1.5 K/uL (2.5-16.5); LYMPHOCYTES % (AUTO) 33.2 % (20.5-51.1); MEAN CORPUSCULAR HEMOGLOBIN 29 pg (27-31); MEAN CORPUSCULAR HGB CONC 35 g/dL (33-37); MEAN CORPUSCULAR VOLUME 84.5 fL (80-94); MONOCYTES # (AUTO) 0.3 K/uL (0.8-1.0); NEUTROPHILS # (AUTO) 2.5 K/uL (1.8-7.7); NEUTROPHILS % (AUTO) 57.3 % (42.2-75.2); PLATELET COUNT (AUTO) 229 K/uL (140-450); RED BLOOD CELL COUNT(AUTO) 2.19 MIL/uL (4.20-5.40); RED CELL DISTRIBUTION WIDTH 15.1 % (11.6-13.7); WHITE BLOOD COUNT (AUTO) 4.4 K/uL (4.8-10.8)
[2023-05-12 06:32] LABS: ANION GAP 13.7 (8-16); CALCIUM 7.2 mg/dL (8.5-10.1); CARBON DIOXIDE 17.2 mmol/L (21-32); CREATININE 2.4 mg/dL (0.6-1.3); POTASSIUM 3.9 mmol/L (3.5-5.1)
[2023-05-12] MEDS: BLOOD GLUCOSE MONITORING 1 DEV DEV FS SCH ×4 (06:35→21:31)
[2023-05-12] MEDS: INSULIN LISPRO SLIDING SCALE 100 UNITS/ML VIAL SUBQ PRN (06:36)
[2023-05-12 06:40] LABS: HEMATOCRIT 18.5 % (36-48); HEMOGLOBIN 6.4 g/dL (12.0-16.0)
[2023-05-12] MEDS: ASPIRIN 81 MG TAB.CHEW PO SCH (08:38)
[2023-05-12] MEDS: INSULIN NPH HUM/REG INSULIN HM 100 UNIT/ML 10 ML VIAL SUBQ SCH ×2 (08:44→21:32)
[2023-05-12] MEDS: hydroCHLOROthiazide 25 MG TAB PO SCH (17:05)
[2023-05-12] MEDS: hydrALAZINE 20 MG/ML VIAL IVP PRN (17:06)
[2023-05-12] MEDS: ATORVASTATIN 20 MG TAB PO SCH (21:30)
[2023-05-12 22:46] LABS: URINE TOTAL PROTEIN 853.9 mg/dL (0-12); URINE TPRO CREAT RATIO 50.2 (0-0.20)
[2023-05-13] VITALS (7 sets, daily range): BP systolic 133–177; BP diastolic 69–96; PULSE 78–88; RESP 16–18; TEMP 97.7–98.8; O2SAT 97–99
[2023-05-13 06:52] LABS: BASOPHILS % (AUTO) 0.3 % (0.0-2.0); EOSINOPHILS # (AUTO) 0.2 K/uL (0-0.4); EOSINOPHILS % (AUTO) 2.6 % (0.0-4.0); HEMATOCRIT 26.6 % (36-48); HEMOGLOBIN 9.1 g/dL (12.0-16.0); LYMPHOCYTES # (AUTO) 1.5 K/uL (2.5-16.5); LYMPHOCYTES % (AUTO) 21.9 % (20.5-51.1); MEAN CORPUSCULAR HEMOGLOBIN 30 pg (27-31); MEAN CORPUSCULAR HGB CONC 34 g/dL (33-37); MEAN CORPUSCULAR VOLUME 86.2 fL (80-94); MONOCYTES # (AUTO) 0.5 K/uL (0.8-1.0); MONOCYTES % (AUTO) 7.1 % (1.7-9.3); NEUTROPHILS # (AUTO) 4.7 K/uL (1.8-7.7); NEUTROPHILS % (AUTO) 68.1 % (42.2-75.2); PLATELET COUNT (AUTO) 273 K/uL (140-450); RED BLOOD CELL COUNT(AUTO) 3.08 MIL/uL (4.20-5.40); RED CELL DISTRIBUTION WIDTH 15.3 % (11.6-13.7); WHITE BLOOD COUNT (AUTO) 6.9 K/uL (4.8-10.8)
[2023-05-13 06:55] LABS: ANION GAP 13.6 (8-16); CALCIUM 7.4 mg/dL (8.5-10.1); CARBON DIOXIDE 18.3 mmol/L (21-32); CREATININE 2.4 mg/dL (0.6-1.3); POTASSIUM 3.9 mmol/L (3.5-5.1)
[2023-05-13] MEDS: BLOOD GLUCOSE MONITORING 1 DEV DEV FS SCH ×3 (07:13→16:30)
[2023-05-13] MEDS: ASPIRIN 81 MG TAB.CHEW PO SCH (08:56)
[2023-05-13] MEDS: hydroCHLOROthiazide 25 MG TAB PO SCH (08:56)
[2023-05-13] MEDS: INSULIN NPH HUM/REG INSULIN HM 100 UNIT/ML 10 ML VIAL SUBQ SCH (09:01)
[2023-05-13] MEDS: ACETAMINOPHEN 325 MG TAB PO PRN (09:05)
[2023-05-13] MEDS: hydrALAZINE 20 MG/ML VIAL IVP PRN (13:10)
[2023-05-13] MEDS ORDERED: LOSARTAN 25 MG TAB PO SCH (15:25)
[2023-05-13] MEDS ORDERED: LOSA25TA1 PO (15:44)
[2023-05-13] MEDS ORDERED: HYDR25TA32 PO (15:44)
== END 2023-05-13 18:00 | disposition home or self-care (01) | DRG 469 ==
LOC: MED 13:42 → OBSVTOIN 16:54 → MTU 16:54
PROVIDERS: ADMIT Internal Medicine; ATTEND Internal Medicine
PROC: 30233N1 Transfusion of Nonautologous Red Blood Cells into Peripheral Vein, Percutaneous Approach (ICD-10-PCS; principal; 2023-05-12)
DX: N17.9 Acute kidney failure, unspecified (principal); E43 Unspecified severe protein-calorie malnutrition; I13.0 Hypertensive heart and chronic kidney disease with heart failure and stage 1 through stage 4 chronic kidney disease, or unspecified chronic kidney disease; G45.9 Transient cerebral ischemic attack, unspecified; E83.51 Hypocalcemia; E11.21 Type 2 diabetes mellitus with diabetic nephropathy; D64.9 Anemia, unspecified; E11.42 Type 2 diabetes mellitus with diabetic polyneuropathy; Z68.22 Body mass index [BMI] 22.0-22.9, adult; E78.5 Hyperlipidemia, unspecified; I16.9 Hypertensive crisis, unspecified; N18.4 Chronic kidney disease, stage 4 (severe); R07.9 Chest pain, unspecified; I16.1 Hypertensive emergency; R20.0 Anesthesia of skin; Z88.5 Allergy status to narcotic agent; R82.81 Pyuria
CPT/HCPCS: 36415; 36430; 70450; 71045; 76770; 80048; 80053; 81001; 82306; 82570; 82728; 82948; 83540; 83735; 84484; 85025; 85610; 85730; 86886; 86900; 86901; 86920; 87081; 87086; 93005; 97116; 97163-GP; 99291; J0360; J0696; J1815; J7060; P9016; Q0092; Q9967

== ENCOUNTER 2023-09-06 16:37 | Inpatient (IN) | payer OTHER ==
[~2023-09-06] VITALS: Ht 157.5 cm; Wt 54.4 kg
[~2023-09-06 16:37] MED LIST changes: -FURO-570 PO; +HYDR25TA32 PO; +LOSA-269 PO; -LOV40I SUBQ
[2023-09-06 17:05] VITALS: BP 140/86; PULSE 84; RESP 18; TEMP 98; O2SAT 98
[2023-09-06 18:04] LABS: BASOPHILS % (AUTO) 0.3 % (0.0-2.0); EOSINOPHILS # (AUTO) 0.2 K/uL (0-0.4); HEMOGLOBIN 7.7 g/dL (12.0-16.0); LYMPHOCYTES # (AUTO) 1.5 K/uL (2.5-16.5); MEAN CORPUSCULAR HEMOGLOBIN 29 pg (27-31); MEAN CORPUSCULAR HGB CONC 34 g/dL (33-37); MEAN CORPUSCULAR VOLUME 84.7 fL (80-94); MONOCYTES # (AUTO) 0.4 K/uL (0.8-1.0); MONOCYTES % (AUTO) 5.2 % (1.7-9.3); NEUTROPHILS # (AUTO) 5.8 K/uL (1.8-7.7); NEUTROPHILS % (AUTO) 73.5 % (42.2-75.2); PLATELET COUNT (AUTO) 269 K/uL (140-450); RED BLOOD CELL COUNT(AUTO) 2.71 MIL/uL (4.20-5.40); RED CELL DISTRIBUTION WIDTH 14.6 % (11.6-13.7); WHITE BLOOD COUNT (AUTO) 7.8 K/uL (4.8-10.8)
[2023-09-06 18:19] LABS: ALBUMIN 1.9 g/dL (3.4-5.0); ANION GAP 16.8 (8-16); CALCIUM 7.8 mg/dL (8.5-10.1); CARBON DIOXIDE 14.2 mmol/L (21-32); CREATININE 3.8 mg/dL (0.6-1.3); TOTAL BILIRUBIN 0.3 mg/dL (0.0-1.0)
[2023-09-06] MEDS ORDERED: FURO-570 PO (19:51)
[2023-09-06] MEDS ORDERED: GABA300C PO (19:51)
[2023-09-06] MEDS ORDERED: HYDR-1098 PO (19:51)
[2023-09-06] MEDS ORDERED: ATOR10TA51 PO (19:51)
[2023-09-06] MEDS ORDERED: ZOLPIDEM 5 MG TAB PO PRN (20:40)
[2023-09-06] MEDS ORDERED: guaiFENesin DM 200/20 MG-10 ML 10 ML UDC PO PRN (20:40)
[2023-09-06] MEDS ORDERED: ONDANSETRON 4 MG/2 ML VIAL IM/IVP PRN (20:40)
[2023-09-06] MEDS ORDERED: POTASSIUM CHLORIDE 10 MEQ TABER PO PRN (20:40)
[2023-09-06] MEDS ORDERED: DOCUSATE SODIUM 100 MG GELCAP PO PRN (20:40)
[2023-09-06] MEDS ORDERED: NACL 0.9% 1,000 ML IV SCH (20:40)
[2023-09-06] MEDS ORDERED: HYDROcodone/APAP 7.5/325 MG 1 TAB PO PRN (20:40)
[2023-09-07] MEDS: ACETAMINOPHEN 325 MG TAB PO PRN (04:17)
[2023-09-07 06:48] LABS: BASOPHILS % (AUTO) 0.2 % (0.0-2.0); EOSINOPHILS # (AUTO) 0.2 K/uL (0-0.4); EOSINOPHILS % (AUTO) 2.3 % (0.0-4.0); LYMPHOCYTES # (AUTO) 1.2 K/uL (2.5-16.5); LYMPHOCYTES % (AUTO) 17.3 % (20.5-51.1); MEAN CORPUSCULAR HEMOGLOBIN 28 pg (27-31); MEAN CORPUSCULAR HGB CONC 34 g/dL (33-37); MEAN CORPUSCULAR VOLUME 84.5 fL (80-94); MONOCYTES # (AUTO) 0.5 K/uL (0.8-1.0); MONOCYTES % (AUTO) 6.4 % (1.7-9.3); NEUTROPHILS # (AUTO) 5.3 K/uL (1.8-7.7); NEUTROPHILS % (AUTO) 73.8 % (42.2-75.2); PLATELET COUNT (AUTO) 228 K/uL (140-450); RED BLOOD CELL COUNT(AUTO) 2.21 MIL/uL (4.20-5.40); RED CELL DISTRIBUTION WIDTH 14.3 % (11.6-13.7); WHITE BLOOD COUNT (AUTO) 7.1 K/uL (4.8-10.8)
[2023-09-07 06:57] LABS: HEMATOCRIT 18.7 % (36-48); HEMOGLOBIN 6.3 g/dL (12.0-16.0)
[2023-09-07 07:02] LABS: ALBUMIN 1.4 g/dL (3.4-5.0); ANION GAP 17.3 (8-16); CALCIUM 7.2 mg/dL (8.5-10.1); CARBON DIOXIDE 13.2 mmol/L (21-32); CREATININE 3.7 mg/dL (0.6-1.3); POTASSIUM 3.5 mmol/L (3.5-5.1); TOTAL BILIRUBIN 0.2 mg/dL (0.0-1.0); TOTAL PROTEIN, SERUM 4.8 g/dL (6.4-8.2)
[2023-09-07] MEDS ORDERED: DEXTROSE 50% 50 ML SYR IVP PRN (08:45)
[2023-09-07] MEDS: PANTOPRAZOLE 40 MG TABEC PO SCH (09:00)
[2023-09-07] MEDS: ATORVASTATIN 20 MG TAB PO SCH (09:00)
[2023-09-07] MEDS ORDERED: LOSARTAN 25 MG TAB PO SCH (09:00)
[2023-09-07] MEDS: hydrALAZINE 25 MG TAB PO SCH ×3 (09:00→17:38)
[2023-09-07] MEDS ORDERED: GABAPENTIN 300 MG CAP PO SCH (09:00)
[2023-09-07] MEDS ORDERED: FUROSEMIDE 40 MG TAB PO SCH (09:00)
[2023-09-07] MEDS: GABAPENTIN 300 MG CAP PO SCH ×3 (09:00→17:38)
[2023-09-07] MEDS ORDERED: NON-FORMULARY ITEM (Atorvastatin Calcium 1 TAB) PO SCH (09:00)
[2023-09-07] MEDS: SODIUM BICARBONATE 8.4% 100 MEQ in NACL 0.45% 1,000 ML IV SCH (10:00)
[2023-09-07] MEDS ORDERED: hydrALAZINE 10 MG TAB ONE ×3 (10:57→17:33)
[2023-09-07] MEDS ORDERED: CRUSHER, PILL MC ONE (11:05)
[2023-09-07] MEDS ORDERED: SODIUM BICARBONATE 8.4% PFS 50 MEQ/50 ML SYR IVP ONE (11:11)
[2023-09-07] MEDS: BLOOD GLUCOSE MONITORING 1 DEV DEV FS SCH ×3 (11:46→20:41)
[2023-09-07 18:38] VITALS: RESP 16; O2SAT 100
[2023-09-07 20:00] VITALS: BP 153/69; PULSE 77; RESP 18; TEMP 97.4; O2SAT 100
[2023-09-07 20:48] LABS: HEMATOCRIT 25.7 % (36-48); HEMOGLOBIN 8.6 g/dL (12.0-16.0)
[2023-09-08] MEDS: BLOOD GLUCOSE MONITORING 1 DEV DEV FS SCH ×4 (06:30→20:21)
[2023-09-08 07:31] LABS: BASOPHILS % (AUTO) 0.4 % (0.0-2.0); EOSINOPHILS # (AUTO) 0.3 K/uL (0-0.4); EOSINOPHILS % (AUTO) 3.5 % (0.0-4.0); HEMATOCRIT 24.3 % (36-48); HEMOGLOBIN 8.2 g/dL (12.0-16.0); LYMPHOCYTES # (AUTO) 1.3 K/uL (2.5-16.5); LYMPHOCYTES % (AUTO) 17.7 % (20.5-51.1); MEAN CORPUSCULAR HEMOGLOBIN 29 pg (27-31); MEAN CORPUSCULAR HGB CONC 34 g/dL (33-37); MONOCYTES # (AUTO) 0.4 K/uL (0.8-1.0); MONOCYTES % (AUTO) 5.8 % (1.7-9.3); NEUTROPHILS # (AUTO) 5.4 K/uL (1.8-7.7); NEUTROPHILS % (AUTO) 72.6 % (42.2-75.2); PLATELET COUNT (AUTO) 236 K/uL (140-450); RED BLOOD CELL COUNT(AUTO) 2.86 MIL/uL (4.20-5.40); RED CELL DISTRIBUTION WIDTH 14.9 % (11.6-13.7); WHITE BLOOD COUNT (AUTO) 7.5 K/uL (4.8-10.8)
[2023-09-08 07:48] LABS: ALBUMIN 1.6 g/dL (3.4-5.0); CALCIUM 7.6 mg/dL (8.5-10.1); CARBON DIOXIDE 14.1 mmol/L (21-32); CREATININE 3.4 mg/dL (0.6-1.3); POTASSIUM 3.1 mmol/L (3.5-5.1); TOTAL BILIRUBIN 0.4 mg/dL (0.0-1.0); TOTAL PROTEIN, SERUM 4.7 g/dL (6.4-8.2)
[2023-09-08 08:00] VITALS: BP 142/67; PULSE 77; PULSE 80; RESP 18; TEMP 98.9; O2SAT 99
[2023-09-08] MEDS: SODIUM BICARBONATE 8.4% 100 MEQ in NACL 0.45% 1,000 ML IV SCH (08:00)
[2023-09-08 08:08] LABS: FOLIC ACID 6.1 ng/mL (>3.0)
[2023-09-08] MEDS ORDERED: POTASSIUM CHLORIDE 10 MEQ TABER PO SCH (08:23)
[2023-09-08] MEDS: hydrALAZINE 25 MG TAB PO SCH ×3 (09:03→16:39)
[2023-09-08] MEDS: ATORVASTATIN 20 MG TAB PO SCH (09:04)
[2023-09-08] MEDS: GABAPENTIN 300 MG CAP PO SCH ×3 (09:04→16:39)
[2023-09-08] MEDS: PANTOPRAZOLE 40 MG TABEC PO SCH (09:04)
[2023-09-08] MEDS ORDERED: EPOETIN ALFA 10,000 UNITS/ML VIAL IV ONE (11:50)
[2023-09-08] MEDS: POLYETHYLENE GLYCOL 17 GM/PKT PO SCH ×2 (12:50→16:44)
[2023-09-08] MEDS: SENNA 8.6 MG TAB PO SCH ×2 (12:50→16:45)
[2023-09-08] MEDS: CITRIC ACID/SODIUM CITRATE 30 ML UDC PO SCH ×2 (12:51→16:45)
[2023-09-08] MEDS: LACTULOSE 20 GM/30 ML UDC PO SCH ×3 (12:53→20:21)
[2023-09-08] MEDS ORDERED: RETACRIT 10,000 UNITS IV SCH (13:00)
[2023-09-08 13:30] LABS: APPEARANCE,URINE CLEAR (CLEAR); BILIRUBIN,URINE NEGATIVE (NEGATIVE); BLOOD, URINE 1+ (NEGATIVE); COLOR,URINE YELLOW (YELLOW); LEUKOCYTE ESTERASE ,URINE 2+ (NEGATIVE); NITRITE, URINE NEGATIVE (NEGATIVE); PH,URINE 5.5 (5.0-9.0); PROTEIN,URINE 3+ (NEGATIVE); UGLUCOSE NEGATIVE (NEGATIVE); UROBILINOGEN,URINE 0.2 EU/dL (0.2 - 1)
[2023-09-08 14:05] LABS: RBC,URINE 0-5 /HPF (0-5)
[2023-09-08 14:06] LABS: BACTERIA,URINE 3+ /HPF (None Seen); SQUAMOUS EPITHELIAL CELL,UR 0-3 (FEW) /LPF (0-3 (FEW)); WBC,URINE 16-25 (MOD) /HPF (0-5)
[2023-09-08 16:00] VITALS: BP 147/70; PULSE 80; RESP 18; TEMP 98.6; O2SAT 99
[2023-09-08 16:07] LABS: URINE TPRO CREAT RATIO 24.1 (0-0.20)
[2023-09-08 16:09] LABS: URINE TOTAL PROTEIN 697.7 mg/dL (0-12)
[2023-09-08 20:00] VITALS: PULSE 79; RESP 18; O2SAT 98
[2023-09-08] MEDS ORDERED: CLONIDINE HYDROCHLORIDE 0.1 MG TAB PO PRN (20:05)
[2023-09-09] VITALS: BP 131/65; PULSE 73; RESP 18; TEMP 97.3; O2SAT 98
[2023-09-09] MEDS: SODIUM BICARBONATE 8.4% 100 MEQ in NACL 0.45% 1,000 ML IV SCH (06:03)
[2023-09-09 06:37] LABS: BASOPHILS % (AUTO) 0.2 % (0.0-2.0); EOSINOPHILS # (AUTO) 0.2 K/uL (0-0.4); EOSINOPHILS % (AUTO) 3.1 % (0.0-4.0); HEMATOCRIT 24.6 % (36-48); HEMOGLOBIN 8.3 g/dL (12.0-16.0); LYMPHOCYTES # (AUTO) 1.2 K/uL (2.5-16.5); LYMPHOCYTES % (AUTO) 16.4 % (20.5-51.1); MEAN CORPUSCULAR HEMOGLOBIN 29 pg (27-31); MEAN CORPUSCULAR HGB CONC 34 g/dL (33-37); MONOCYTES # (AUTO) 0.4 K/uL (0.8-1.0); MONOCYTES % (AUTO) 5.8 % (1.7-9.3); NEUTROPHILS # (AUTO) 5.2 K/uL (1.8-7.7); NEUTROPHILS % (AUTO) 74.5 % (42.2-75.2); PLATELET COUNT (AUTO) 235 K/uL (140-450); RED BLOOD CELL COUNT(AUTO) 2.89 MIL/uL (4.20-5.40); RED CELL DISTRIBUTION WIDTH 14.7 % (11.6-13.7)
[2023-09-09] MEDS: BLOOD GLUCOSE MONITORING 1 DEV DEV FS SCH ×4 (06:43→20:28)
[2023-09-09] MEDS ORDERED: diphenhydrAMINE 50 MG/ML VIAL ONE (07:38)
[2023-09-09] MEDS ORDERED: fentaNYL citrate 0.05 MG/ML VIAL ONE (07:39)
[2023-09-09] MEDS ORDERED: MIDAZOLAM 2 MG/2 ML VIAL ONE (07:39)
[2023-09-09 08:00] VITALS: BP 131/57; PULSE 87; RESP 16; TEMP 98.2; O2SAT 96
[2023-09-09 08:34] LABS: ALBUMIN 1.5 g/dL (3.4-5.0); ANION GAP 16.8 (8-16); CALCIUM 7.3 mg/dL (8.5-10.1); CARBON DIOXIDE 16.6 mmol/L (21-32); CREATININE 3.3 mg/dL (0.6-1.3); POTASSIUM 3.4 mmol/L (3.5-5.1); TOTAL BILIRUBIN 0.3 mg/dL (0.0-1.0); TOTAL PROTEIN, SERUM 4.5 g/dL (6.4-8.2)
[2023-09-09] MEDS ORDERED: fentaNYL citrate 0.05 MG/ML VIAL IVP ONE (09:20)
[2023-09-09] MEDS ORDERED: MIDAZOLAM 2 MG/2 ML VIAL IVP ONE (09:20)
[2023-09-09] MEDS: CITRIC ACID/SODIUM CITRATE 30 ML UDC PO SCH ×3 (09:57→17:15)
[2023-09-09] MEDS: GABAPENTIN 300 MG CAP PO SCH ×3 (09:58→17:15)
[2023-09-09] MEDS: hydrALAZINE 25 MG TAB PO SCH ×3 (09:58→17:15)
[2023-09-09] MEDS: ATORVASTATIN 20 MG TAB PO SCH (09:59)
[2023-09-09] MEDS ORDERED: EPOETIN ALFA 10,000 UNITS/ML VIAL SUBQ SCH (10:00)
[2023-09-09] MEDS ORDERED: RETACRIT 10,000 UNITS IV SCH (10:00)
[2023-09-09] MEDS ORDERED: POTASSIUM CHLORIDE 10 MEQ TABER PO SCH (10:00)
[2023-09-09 16:00] VITALS: BP 132/55; PULSE 89; RESP 16; TEMP 97.8; O2SAT 98
[2023-09-09 20:00] VITALS: PULSE 79; RESP 18; O2SAT 96
[2023-09-09] MEDS: INSULIN LISPRO SLIDING SCALE 100 UNITS/ML VIAL SUBQ PRN (20:34)
[2023-09-09 21:37] VITALS: BP 156/76; PULSE 79; RESP 16; TEMP 98.4; O2SAT 98
[2023-09-10] MEDS: SODIUM BICARBONATE 8.4% 100 MEQ in NACL 0.45% 1,000 ML IV SCH (03:48)
[2023-09-10 04:00] VITALS: BP 150/76; PULSE 77; RESP 16; TEMP 98.1; O2SAT 98
[2023-09-10 05:51] LABS: APPEARANCE,URINE CLEAR (CLEAR); BILIRUBIN,URINE NEGATIVE (NEGATIVE); BLOOD, URINE 1+ (NEGATIVE); COLOR,URINE YELLOW (YELLOW); LEUKOCYTE ESTERASE ,URINE 2+ (NEGATIVE); NITRITE, URINE POSITIVE (NEGATIVE); PROTEIN,URINE 3+ (NEGATIVE); UGLUCOSE 2+ (NEGATIVE); UROBILINOGEN,URINE 0.2 EU/dL (0.2 - 1)
[2023-09-10 06:01] LABS: BACTERIA,URINE >30 (MANY) /HPF (None Seen); MUCUS,URINE 1+ /LPF (None Seen); SQUAMOUS EPITHELIAL CELL,UR 0-3 (FEW) /LPF (0-3 (FEW)); WBC,URINE TOO MANY TO COUNT /HPF (0-5)
[2023-09-10] MEDS: BLOOD GLUCOSE MONITORING 1 DEV DEV FS SCH ×4 (06:45→20:36)
[2023-09-10 07:05] LABS: ALBUMIN 1.4 g/dL (3.4-5.0); ANION GAP 15.4 (8-16); CALCIUM 6.8 mg/dL (8.5-10.1); CARBON DIOXIDE 19.6 mmol/L (21-32); CREATININE 3.4 mg/dL (0.6-1.3); TOTAL BILIRUBIN 0.3 mg/dL (0.0-1.0); TOTAL PROTEIN, SERUM 4.8 g/dL (6.4-8.2)
[2023-09-10 07:17] LABS: BASOPHILS % (AUTO) 0.3 % (0.0-2.0); EOSINOPHILS # (AUTO) 0.2 K/uL (0-0.4); EOSINOPHILS % (AUTO) 3.1 % (0.0-4.0); HEMATOCRIT 27.6 % (36-48); HEMOGLOBIN 9.2 g/dL (12.0-16.0); LYMPHOCYTES # (AUTO) 1.3 K/uL (2.5-16.5); MEAN CORPUSCULAR HEMOGLOBIN 29 pg (27-31); MEAN CORPUSCULAR HGB CONC 33 g/dL (33-37); MONOCYTES # (AUTO) 0.5 K/uL (0.8-1.0); MONOCYTES % (AUTO) 7.3 % (1.7-9.3); NEUTROPHILS % (AUTO) 71.3 % (42.2-75.2); PLATELET COUNT (AUTO) 254 K/uL (140-450)
[2023-09-10 08:00] VITALS: PULSE 75; PULSE 79; RESP 16; O2SAT 98
[2023-09-10] MEDS: ATORVASTATIN 20 MG TAB PO SCH (09:48)
[2023-09-10] MEDS: hydrALAZINE 25 MG TAB PO SCH ×3 (09:48→17:15)
[2023-09-10] MEDS: CITRIC ACID/SODIUM CITRATE 30 ML UDC PO SCH ×3 (09:48→17:15)
[2023-09-10] MEDS: GABAPENTIN 300 MG CAP PO SCH ×3 (09:49→17:15)
[2023-09-10] MEDS: INSULIN LISPRO SLIDING SCALE 100 UNITS/ML VIAL SUBQ PRN ×3 (11:37→20:40)
[2023-09-10 16:00] VITALS: BP 162/85; PULSE 78; RESP 16; TEMP 97.8; O2SAT 96
[2023-09-10 20:00] VITALS: BP 172/88; PULSE 83; RESP 16; TEMP 98.2; O2SAT 96; O2SAT 98
[2023-09-10] MEDS: CLONIDINE HYDROCHLORIDE 0.1 MG TAB PO PRN (20:36)
[2023-09-11] VITALS (8 sets, daily range): BP systolic 138–177; BP diastolic 68–82; PULSE 68–85; RESP 16–18; TEMP 97.3–98.3; O2SAT 96–100
[2023-09-11] MEDS: SODIUM BICARBONATE 8.4% 100 MEQ in NACL 0.45% 1,000 ML IV SCH (01:45)
[2023-09-11] MEDS: INSULIN LISPRO SLIDING SCALE 100 UNITS/ML VIAL SUBQ PRN ×3 (06:30→21:01)
[2023-09-11] MEDS: BLOOD GLUCOSE MONITORING 1 DEV DEV FS SCH ×4 (06:31→20:57)
[2023-09-11 06:32] LABS: HEMATOCRIT 24.8 % (36-48); HEMOGLOBIN 8.3 g/dL (12.0-16.0); MEAN CORPUSCULAR HEMOGLOBIN 29 pg (27-31); MEAN CORPUSCULAR HGB CONC 34 g/dL (33-37); MEAN CORPUSCULAR VOLUME 85.2 fL (80-94); PLATELET COUNT (AUTO) 236 K/uL (140-450); RED BLOOD CELL COUNT(AUTO) 2.92 MIL/uL (4.20-5.40); RED CELL DISTRIBUTION WIDTH 14.6 % (11.6-13.7); WHITE BLOOD COUNT (AUTO) 6.9 K/uL (4.8-10.8)
[2023-09-11 06:39] LABS: ALBUMIN 1.3 g/dL (3.4-5.0); ANION GAP 13.5 (8-16); CALCIUM 6.9 mg/dL (8.5-10.1); CARBON DIOXIDE 23.3 mmol/L (21-32); CREATININE 3.3 mg/dL (0.6-1.3); POTASSIUM 3.8 mmol/L (3.5-5.1); TOTAL BILIRUBIN 0.2 mg/dL (0.0-1.0); TOTAL PROTEIN, SERUM 4.6 g/dL (6.4-8.2)
[2023-09-11 08:05] LABS: BASOPHILS % (MANUAL) 0 % (0-2); BLASTS, MANUAL % 0 % (0-0); EOSINOPHILS % (MANUAL) 3 % (0-4); LYMPHOCYTES % (MANUAL) 23 % (20-46); METAMYELOCYTES % 0 % (0-0); MONOCYTES % (MANUAL) 7 % (5-12); MYELOCYTES % 0 % (0-0); OTHER CELLS,MANUAL % 0 (0-0); PROMYELOCYTES % 0 % (0-0)
[2023-09-11 08:06] LABS: PLASMA CELLS 0; PLATELET ESTIMATE ADEQUATE
[2023-09-11] MEDS: GABAPENTIN 300 MG CAP PO SCH ×3 (08:28→16:07)
[2023-09-11] MEDS: CITRIC ACID/SODIUM CITRATE 30 ML UDC PO SCH ×3 (08:28→16:08)
[2023-09-11] MEDS: hydrALAZINE 25 MG TAB PO SCH ×3 (08:28→16:08)
[2023-09-11] MEDS: ATORVASTATIN 20 MG TAB PO SCH (08:28)
[2023-09-12] VITALS (8 sets, daily range): BP systolic 137–168; BP diastolic 69–87; PULSE 72–85; RESP 17–18; TEMP 97–98; O2SAT 97–100
[2023-09-12] MEDS: SODIUM BICARBONATE 8.4% 100 MEQ in NACL 0.45% 1,000 ML IV SCH (02:25)
[2023-09-12] MEDS: BLOOD GLUCOSE MONITORING 1 DEV DEV FS SCH ×4 (06:40→21:08)
[2023-09-12] MEDS: INSULIN LISPRO SLIDING SCALE 100 UNITS/ML VIAL SUBQ PRN ×4 (06:41→21:11)
[2023-09-12 07:37] LABS: BASOPHILS % (AUTO) 0.2 % (0.0-2.0); EOSINOPHILS # (AUTO) 0.2 K/uL (0-0.4); EOSINOPHILS % (AUTO) 2.4 % (0.0-4.0); HEMATOCRIT 24.5 % (36-48); HEMOGLOBIN 8.3 g/dL (12.0-16.0); LYMPHOCYTES # (AUTO) 1.4 K/uL (2.5-16.5); LYMPHOCYTES % (AUTO) 20.5 % (20.5-51.1); MEAN CORPUSCULAR HEMOGLOBIN 29 pg (27-31); MEAN CORPUSCULAR HGB CONC 34 g/dL (33-37); MEAN CORPUSCULAR VOLUME 85.5 fL (80-94); MONOCYTES # (AUTO) 0.5 K/uL (0.8-1.0); MONOCYTES % (AUTO) 7.9 % (1.7-9.3); NEUTROPHILS # (AUTO) 4.7 K/uL (1.8-7.7); PLATELET COUNT (AUTO) 221 K/uL (140-450); RED BLOOD CELL COUNT(AUTO) 2.87 MIL/uL (4.20-5.40); RED CELL DISTRIBUTION WIDTH 14.4 % (11.6-13.7); WHITE BLOOD COUNT (AUTO) 6.8 K/uL (4.8-10.8)
[2023-09-12 07:50] LABS: ALBUMIN 1.4 g/dL (3.4-5.0); ANION GAP 9.1 (8-16); CALCIUM 7.1 mg/dL (8.5-10.1); CARBON DIOXIDE 28.2 mmol/L (21-32); POTASSIUM 3.3 mmol/L (3.5-5.1); TOTAL BILIRUBIN 0.3 mg/dL (0.0-1.0); TOTAL PROTEIN, SERUM 4.7 g/dL (6.4-8.2)
[2023-09-12] MEDS: GABAPENTIN 300 MG CAP PO SCH ×3 (08:26→16:51)
[2023-09-12] MEDS: hydrALAZINE 25 MG TAB PO SCH ×3 (08:27→17:53)
[2023-09-12] MEDS: CITRIC ACID/SODIUM CITRATE 30 ML UDC PO SCH ×3 (08:27→16:51)
[2023-09-12] MEDS: ATORVASTATIN 20 MG TAB PO SCH (08:27)
[2023-09-12] MEDS: ACETAMINOPHEN 325 MG TAB PO PRN (15:35)
[2023-09-12] MEDS: CLONIDINE HYDROCHLORIDE 0.1 MG TAB PO PRN (16:20)
[2023-09-13 04:00] VITALS: BP 152/71; PULSE 73; RESP 18; TEMP 98.2; O2SAT 96
[2023-09-13] MEDS: BLOOD GLUCOSE MONITORING 1 DEV DEV FS SCH ×4 (06:36→20:27)
[2023-09-13] MEDS: INSULIN LISPRO SLIDING SCALE 100 UNITS/ML VIAL SUBQ PRN ×4 (06:36→20:34)
[2023-09-13 07:16] LABS: BASOPHILS % (AUTO) 0.1 % (0.0-2.0); EOSINOPHILS # (AUTO) 0.2 K/uL (0-0.4); EOSINOPHILS % (AUTO) 3.2 % (0.0-4.0); HEMATOCRIT 25.8 % (36-48); HEMOGLOBIN 8.7 g/dL (12.0-16.0); LYMPHOCYTES # (AUTO) 1.4 K/uL (2.5-16.5); LYMPHOCYTES % (AUTO) 22.8 % (20.5-51.1); MEAN CORPUSCULAR HEMOGLOBIN 29 pg (27-31); MEAN CORPUSCULAR HGB CONC 34 g/dL (33-37); MEAN CORPUSCULAR VOLUME 86.1 fL (80-94); MONOCYTES # (AUTO) 0.5 K/uL (0.8-1.0); MONOCYTES % (AUTO) 8.6 % (1.7-9.3); NEUTROPHILS # (AUTO) 3.9 K/uL (1.8-7.7); NEUTROPHILS % (AUTO) 65.3 % (42.2-75.2); PLATELET COUNT (AUTO) 230 K/uL (140-450); RED BLOOD CELL COUNT(AUTO) 2.99 MIL/uL (4.20-5.40); RED CELL DISTRIBUTION WIDTH 14.4 % (11.6-13.7)
[2023-09-13 07:38] LABS: ALBUMIN 1.3 g/dL (3.4-5.0); ANION GAP 10.2 (8-16); CARBON DIOXIDE 28.2 mmol/L (21-32); CREATININE 3.2 mg/dL (0.6-1.3); POTASSIUM 4.4 mmol/L (3.5-5.1); TOTAL BILIRUBIN 0.3 mg/dL (0.0-1.0); TOTAL PROTEIN, SERUM 4.5 g/dL (6.4-8.2)
[2023-09-13 08:00] VITALS: BP 161/90; PULSE 75; RESP 19; TEMP 96.9; O2SAT 98
[2023-09-13] MEDS: CITRIC ACID/SODIUM CITRATE 30 ML UDC PO SCH ×3 (10:04→16:58)
[2023-09-13] MEDS: hydrALAZINE 25 MG TAB PO SCH ×3 (10:04→16:58)
[2023-09-13] MEDS: ATORVASTATIN 20 MG TAB PO SCH (10:04)
[2023-09-13] MEDS: GABAPENTIN 300 MG CAP PO SCH ×3 (10:04→16:58)
[2023-09-13] MEDS ORDERED: CIPR500T4 PO (11:26)
[2023-09-13 20:00] VITALS: BP 137/74; PULSE 86; RESP 18; TEMP 97; O2SAT 94
[2023-09-14 04:00] VITALS: BP 150/74; PULSE 73; RESP 18; TEMP 97.1; O2SAT 96
[2023-09-14] MEDS: INSULIN LISPRO SLIDING SCALE 100 UNITS/ML VIAL SUBQ PRN ×4 (06:35→20:49)
[2023-09-14] MEDS: BLOOD GLUCOSE MONITORING 1 DEV DEV FS SCH ×4 (07:10→20:46)
[2023-09-14 08:00] VITALS: BP 158/96; PULSE 76; RESP 18; TEMP 98; O2SAT 97
[2023-09-14] MEDS: CITRIC ACID/SODIUM CITRATE 30 ML UDC PO SCH ×3 (08:21→16:48)
[2023-09-14] MEDS: hydrALAZINE 25 MG TAB PO SCH ×3 (08:21→17:24)
[2023-09-14] MEDS: ATORVASTATIN 20 MG TAB PO SCH (08:22)
[2023-09-14] MEDS: GABAPENTIN 300 MG CAP PO SCH ×3 (08:22→16:48)
[2023-09-14] MEDS: INSULIN LANTUS 100 UNITS/ML 10 ML VIAL SUBQ SCH (10:03)
[2023-09-14 12:00] VITALS: BP 151/83; PULSE 80; RESP 18; TEMP 97.6; O2SAT 98
[2023-09-14 15:30] VITALS: BP 164/86; PULSE 79; RESP 18; TEMP 97.7; O2SAT 99
[2023-09-14] MEDS: CLONIDINE HYDROCHLORIDE 0.1 MG TAB PO PRN (15:46)
[2023-09-14 17:20] VITALS: BP 141/75; PULSE 74; RESP 18; TEMP 97.7; O2SAT 99
[2023-09-14 20:00] VITALS: PULSE 74; RESP 17; O2SAT 98
[2023-09-15 04:00] VITALS: BP 141/77; PULSE 69; RESP 18; TEMP 98; O2SAT 97
[2023-09-15] MEDS: BLOOD GLUCOSE MONITORING 1 DEV DEV FS SCH ×2 (06:33→11:27)
[2023-09-15 08:00] VITALS: BP 155/77; PULSE 69; RESP 17; TEMP 98.4; O2SAT 96; O2SAT 98
[2023-09-15] MEDS: GABAPENTIN 300 MG CAP PO SCH ×2 (08:28→12:33)
[2023-09-15] MEDS: ATORVASTATIN 20 MG TAB PO SCH (08:29)
[2023-09-15] MEDS: hydrALAZINE 25 MG TAB PO SCH ×2 (08:29→12:34)
[2023-09-15] MEDS: CITRIC ACID/SODIUM CITRATE 30 ML UDC PO SCH ×2 (08:29→12:33)
[2023-09-15] MEDS: INSULIN LANTUS 100 UNITS/ML 10 ML VIAL SUBQ SCH (08:32)
[2023-09-15] MEDS: INSULIN LISPRO SLIDING SCALE 100 UNITS/ML VIAL SUBQ PRN (11:29)
[2023-09-15 12:20] VITALS: BP 151/84; PULSE 78; RESP 18; TEMP 98; O2SAT 97
[2023-09-15] MEDS ORDERED: LOPERAMIDE 2 MG CAP PO SCH (14:40)
== END 2023-09-15 16:20 | DRG 254 ==
LOC: MED 16:37 → MTU 20:36
PROVIDERS: ADMIT Student in an Organized Health Care Education/Training Program; ATTEND Student in an Organized Health Care Education/Training Program
PROC: 30233N1 Transfusion of Nonautologous Red Blood Cells into Peripheral Vein, Percutaneous Approach (ICD-10-PCS; 2023-09-07)
PROC: 0DJ08ZZ Inspection of Upper Intestinal Tract, Via Natural or Artificial Opening Endoscopic (ICD-10-PCS; principal; 2023-09-09 08:00)
PROC: 0DBF8ZZ Excision of Right Large Intestine, Via Natural or Artificial Opening Endoscopic (ICD-10-PCS; 2023-09-09 08:00)
DX: K31.7 Polyp of stomach and duodenum (principal); N17.0 Acute kidney failure with tubular necrosis; E43 Unspecified severe protein-calorie malnutrition; E87.20 Acidosis, unspecified; M48.56XA Collapsed vertebra, not elsewhere classified, lumbar region, initial encounter for fracture; E83.51 Hypocalcemia; D50.0 Iron deficiency anemia secondary to blood loss (chronic); E11.22 Type 2 diabetes mellitus with diabetic chronic kidney disease; N18.9 Chronic kidney disease, unspecified; I12.9 Hypertensive chronic kidney disease with stage 1 through stage 4 chronic kidney disease, or unspecified chronic kidney disease; N18.4 Chronic kidney disease, stage 4 (severe); E11.40 Type 2 diabetes mellitus with diabetic neuropathy, unspecified; E78.5 Hyperlipidemia, unspecified; D12.2 Benign neoplasm of ascending colon; K64.8 Other hemorrhoids; N39.0 Urinary tract infection, site not specified; Z82.49 Family history of ischemic heart disease and other diseases of the circulatory system; Z83.3 Family history of diabetes mellitus; Z87.441 Personal history of nephrotic syndrome; Z88.5 Allergy status to narcotic agent; Z68.21 Body mass index [BMI] 21.0-21.9, adult; Z79.899 Other long term (current) drug therapy
CPT/HCPCS: 36415; 36430; 71045; 72131; 76770; 80053; 81001; 82272; 82306; 82570; 82607; 82728; 82746; 82948; 83036; 83540; 83880; 84156; 84550; 85018; 85025; 86886; 86900; 86901; 86920; 87081; 87086; 88305; 93970; 97112; 97116; 97163-GP; 97530; 99285; J0696; J1200; J1644; J1815; J2250; J3010; J3490; J7030; J7060; P9016; Q0092

== ENCOUNTER 2023-10-02 11:23 | Inpatient (IN) | payer OTHER ==
[~2023-10-02] VITALS: Ht 157.5 cm; Wt 72.1 kg
[~2023-10-02 11:23] MED LIST changes: +ATOR10TA51 PO; +CIPR500T4 PO; +FURO-570 PO; +HYDR-1098 PO
[2023-10-02 11:45] VITALS: BP 173/74; PULSE 83; RESP 20; TEMP 98.1; O2SAT 98
[2023-10-02] MEDS: ACETAMINOPHEN EXTRA STRENGTH 500 MG TAB PO ONE (12:10)
[2023-10-02 12:39] LABS: BASOPHILS % (AUTO) 0.2 % (0.0-2.0); EOSINOPHILS # (AUTO) 0.1 K/uL (0-0.4); EOSINOPHILS % (AUTO) 1.6 % (0.0-4.0); HEMATOCRIT 25.8 % (36-48); HEMOGLOBIN 8.5 g/dL (12.0-16.0); LYMPHOCYTES # (AUTO) 0.9 K/uL (2.5-16.5); LYMPHOCYTES % (AUTO) 10.3 % (20.5-51.1); MEAN CORPUSCULAR HEMOGLOBIN 29 pg (27-31); MEAN CORPUSCULAR HGB CONC 33 g/dL (33-37); MEAN CORPUSCULAR VOLUME 88.1 fL (80-94); MONOCYTES # (AUTO) 0.5 K/uL (0.8-1.0); MONOCYTES % (AUTO) 5.5 % (1.7-9.3); NEUTROPHILS # (AUTO) 7.1 K/uL (1.8-7.7); NEUTROPHILS % (AUTO) 82.4 % (42.2-75.2); PLATELET COUNT (AUTO) 274 K/uL (140-450); RED BLOOD CELL COUNT(AUTO) 2.92 MIL/uL (4.20-5.40); RED CELL DISTRIBUTION WIDTH 14.8 % (11.6-13.7); WHITE BLOOD COUNT (AUTO) 8.6 K/uL (4.8-10.8)
[2023-10-02 12:41] LABS: FLU A ANTIGEN negative (NEGATIVE); FLU B ANTIGEN NEGATIVE (NEGATIVE)
[2023-10-02 12:51] LABS: ANION GAP 21.1 (8-16); CALCIUM 7.6 mg/dL (8.5-10.1); CARBON DIOXIDE 15.3 mmol/L (21-32)
[2023-10-02 12:54] LABS: CREATININE 5.8 mg/dL (0.6-1.3); POTASSIUM 8.4 mmol/L (3.5-5.1)
[2023-10-02 13:01] LABS: ALBUMIN 1.4 g/dL (3.4-5.0); BILIRUBIN,DIRECT 0.1 mg/dL (0.0-0.3); TOTAL BILIRUBIN 0.2 mg/dL (0.0-1.0); TOTAL PROTEIN, SERUM 5.9 g/dL (6.4-8.2)
[2023-10-02] MEDS: ALBUTEROL 0.083% 2.5 MG/3 ML NEBU INH ONE (13:11)
[2023-10-02] MEDS: INSULIN REGULAR, HUMAN 100 UNIT/ML VIAL IV ONE (13:15)
[2023-10-02 13:16] VITALS: PULSE 83; RESP 15; O2SAT 96
[2023-10-02] MEDS: ONDANSETRON 4 MG/2 ML VIAL IVP ONE (13:21)
[2023-10-02] MEDS: CALCIUM GLUC 1 GM/50 mL NS BAG 50 ML IV ONE (13:23)
[2023-10-02] MEDS: DEXTROSE 50% 50 ML SYR IVP ONE (13:24)
[2023-10-02] MEDS ORDERED: HYDR-732 PO (13:46)
[2023-10-02] MEDS ORDERED: POTA20TA49 PO (13:46)
[2023-10-02] MEDS ORDERED: ONDA4TAB12 PO (13:46)
[2023-10-02] MEDS ORDERED: LOSA25TA32 PO (13:46)
[2023-10-02] MEDS ORDERED: INSU100I16 SUBQ (13:46)
[2023-10-02] MEDS ORDERED: FURO40TA9 PO (13:46)
[2023-10-02] MEDS ORDERED: HYDROcodone/APAP 5/325 MG 1 TAB TAB PO PRN (15:10)
[2023-10-02] MEDS ORDERED: MORPHINE SULFATE 2 MG/ML SYR IVP PRN (15:10)
[2023-10-02] MEDS ORDERED: MAG SULF 2000 MG/WATER PREMIX 50 ML IV PRN (15:10)
[2023-10-02] MEDS: SODIUM ZIRCONIUM CYCLOSILICATE 10 GM POWD.PACK PO SCH (15:16)
[2023-10-02 15:49] LABS: APPEARANCE,URINE CLEAR (CLEAR); BILIRUBIN,URINE NEGATIVE (NEGATIVE); BLOOD, URINE 2+ (NEGATIVE); COLOR,URINE YELLOW (YELLOW); LEUKOCYTE ESTERASE ,URINE NEGATIVE (NEGATIVE); NITRITE, URINE NEGATIVE (NEGATIVE); PROTEIN,URINE 3+ (NEGATIVE); UGLUCOSE 2+ (NEGATIVE); UROBILINOGEN,URINE 0.2 EU/dL (0.2 - 1)
[2023-10-02 15:51] LABS: WBC,URINE 0-5 /HPF (0-5)
[2023-10-02 15:52] LABS: BACTERIA,URINE 1+ /HPF (None Seen); MUCUS,URINE None Seen /LPF (None Seen); SQUAMOUS EPITHELIAL CELL,UR 4-10 (MOD) /LPF (0-3 (FEW))
[2023-10-02] MEDS ORDERED: DEXTROSE 50% 50 ML SYR IVP PRN (16:55)
[2023-10-02] MEDS: hydrALAZINE 25 MG TAB PO SCH (17:00)
[2023-10-02 18:00] VITALS: BP 144/69; PULSE 105; RESP 15; TEMP 97.5; O2SAT 95
[2023-10-02 19:00] VITALS: PULSE 103; RESP 15; O2SAT 95
[2023-10-02] MEDS ORDERED: ALBUMIN HUMAN 25% 50 ML IV PRN (19:20)
[2023-10-02 20:00] VITALS: BP 163/100; PULSE 103; RESP 16; TEMP 96.7; O2SAT 93
[2023-10-02] MEDS: BLOOD GLUCOSE MONITORING 1 DEV DEV FS SCH (21:19)
[2023-10-02 22:00] VITALS: BP 189/108; PULSE 108; RESP 14; O2SAT 93
[2023-10-03] VITALS (12 sets, daily range): BP systolic 144–186; BP diastolic 78–112; PULSE 72–106; RESP 10–18; TEMP 97.6–100.4; O2SAT 91–99
[2023-10-03] MEDS: CLONIDINE HYDROCHLORIDE 0.1 MG TAB PO PRN (02:36)
[2023-10-03] MEDS: ACETAMINOPHEN 325 MG TAB PO PRN (02:51)
[2023-10-03 05:44] LABS: BASOPHILS % (AUTO) 0.3 % (0.0-2.0); EOSINOPHILS % (AUTO) 0.5 % (0.0-4.0); LYMPHOCYTES # (AUTO) 0.5 K/uL (2.5-16.5); LYMPHOCYTES % (AUTO) 7.9 % (20.5-51.1); MEAN CORPUSCULAR HEMOGLOBIN 29 pg (27-31); MEAN CORPUSCULAR HGB CONC 33 g/dL (33-37); MEAN CORPUSCULAR VOLUME 86.5 fL (80-94); MONOCYTES # (AUTO) 0.4 K/uL (0.8-1.0); MONOCYTES % (AUTO) 5.5 % (1.7-9.3); NEUTROPHILS # (AUTO) 5.6 K/uL (1.8-7.7); NEUTROPHILS % (AUTO) 85.8 % (42.2-75.2); PLATELET COUNT (AUTO) 228 K/uL (140-450); RED BLOOD CELL COUNT(AUTO) 2.25 MIL/uL (4.20-5.40); RED CELL DISTRIBUTION WIDTH 14.3 % (11.6-13.7); WHITE BLOOD COUNT (AUTO) 6.5 K/uL (4.8-10.8)
[2023-10-03 05:46] LABS: HEMATOCRIT 19.5 % (36-48); HEMOGLOBIN 6.5 g/dL (12.0-16.0)
[2023-10-03 05:48] LABS: ALBUMIN 1.1 g/dL (3.4-5.0); ANION GAP 15.1 (8-16); CALCIUM 7.1 mg/dL (8.5-10.1); CARBON DIOXIDE 23.8 mmol/L (21-32); CREATININE 3.9 mg/dL (0.6-1.3); MAGNESIUM 1.7 mg/dL (1.8-2.4); PHOSPHORUS 5.9 mg/dL (2.5-4.9); POTASSIUM 5.9 mmol/L (3.5-5.1); TOTAL BILIRUBIN 0.2 mg/dL (0.0-1.0); TOTAL PROTEIN, SERUM 5.1 g/dL (6.4-8.2)
[2023-10-03] MEDS: MAGNESIUM OXIDE 400 MG TAB PO PRN (06:40)
[2023-10-03] MEDS: ATORVASTATIN 20 MG TAB PO SCH (08:15)
[2023-10-03] MEDS: DEXAMETHASONE 4 MG/ML VIAL IVP SCH (11:08)
[2023-10-03] MEDS: EPOETIN ALFA-EPBX 10,000 UNITS/ML VIAL IV SCH (16:26)
[2023-10-03 21:21] LABS: HEMATOCRIT 28.4 % (36-48); HEMOGLOBIN 9.5 g/dL (12.0-16.0)
[2023-10-03] MEDS: INSULIN LISPRO SLIDING SCALE 100 UNITS/ML VIAL SUBQ PRN (21:55)
[2023-10-04] VITALS (10 sets, daily range): BP systolic 127–182; BP diastolic 69–92; PULSE 77–92; RESP 11–20; TEMP 97.5–98.5; O2SAT 95–97
[2023-10-04 06:45] LABS: HEMATOCRIT 27.1 % (36-48); HEMOGLOBIN 9.1 g/dL (12.0-16.0); LYMPHOCYTES # (AUTO) 0.6 K/uL (2.5-16.5); LYMPHOCYTES % (AUTO) 6.7 % (20.5-51.1); MEAN CORPUSCULAR HEMOGLOBIN 29 pg (27-31); MEAN CORPUSCULAR HGB CONC 33 g/dL (33-37); MEAN CORPUSCULAR VOLUME 86.2 fL (80-94); MONOCYTES # (AUTO) 0.4 K/uL (0.8-1.0); MONOCYTES % (AUTO) 4.5 % (1.7-9.3); NEUTROPHILS # (AUTO) 7.9 K/uL (1.8-7.7); NEUTROPHILS % (AUTO) 88.8 % (42.2-75.2); PLATELET COUNT (AUTO) 248 K/uL (140-450); RED BLOOD CELL COUNT(AUTO) 3.14 MIL/uL (4.20-5.40); RED CELL DISTRIBUTION WIDTH 14.3 % (11.6-13.7); WHITE BLOOD COUNT (AUTO) 8.9 K/uL (4.8-10.8)
[2023-10-04 07:33] LABS: ALBUMIN 1.2 g/dL (3.4-5.0); CALCIUM 7.6 mg/dL (8.5-10.1); CARBON DIOXIDE 24.6 mmol/L (21-32); CREATININE 3.2 mg/dL (0.6-1.3); MAGNESIUM 1.8 mg/dL (1.8-2.4); PHOSPHORUS 6.4 mg/dL (2.5-4.9); POTASSIUM 4.6 mmol/L (3.5-5.1); TOTAL BILIRUBIN 0.3 mg/dL (0.0-1.0); TOTAL PROTEIN, SERUM 5.9 g/dL (6.4-8.2)
[2023-10-04] MEDS: LABETALOL 20 MG/4 ML VIAL IVP PRN (10:42)
[2023-10-04] MEDS: CALCIUM ACETATE 667 MG TAB PO SCH (12:00)
[2023-10-04] MEDS: BUPIVACAINE-MPF 0.25% 30 ML VIAL INJ ONE (13:24)
[2023-10-04] MEDS: LIDOCAINE/EPI MPF 1%1:200000 30 ML VIAL INJ ONE (13:24)
[2023-10-04] MEDS ORDERED: ONDANSETRON 4 MG/2 ML VIAL IVP PRN (14:20)
[2023-10-04] MEDS ORDERED: HYDROmorphone 1 MG/ML AMP IVP PRN (14:20)
[2023-10-05] VITALS (7 sets, daily range): BP systolic 118–181; BP diastolic 66–101; PULSE 76–95; RESP 18–20; TEMP 97.2–98.7; O2SAT 95–100
[2023-10-05 06:08] LABS: HEPATITIS B CORE, IGM Negative (Negative); HEPATITIS B SURFACE ANTIBODY Reactive (.); HEPATITIS B SURFACE ANTIGEN Negative (Negative)
[2023-10-05 06:08] LABS: HEPATITIS A ANTIBODY IGM Negative (Negative); HEPATITIS B CORE AB TOTAL Negative (Negative); HEPATITIS B CORE, IGM Negative (Negative); HEPATITIS B SURFACE ANTIBODY Reactive (.); HEPATITIS B SURFACE ANTIGEN Negative (Negative); HEPATITIS C VIRUS ANTIBODY Non Reactive (Non Reactive)
[2023-10-05 07:05] LABS: BASOPHILS % (AUTO) 0.1 % (0.0-2.0); EOSINOPHILS % (AUTO) 0.1 % (0.0-4.0); HEMATOCRIT 29.5 % (36-48); LYMPHOCYTES # (AUTO) 0.8 K/uL (2.5-16.5); LYMPHOCYTES % (AUTO) 9.4 % (20.5-51.1); MEAN CORPUSCULAR HEMOGLOBIN 29 pg (27-31); MEAN CORPUSCULAR HGB CONC 34 g/dL (33-37); MEAN CORPUSCULAR VOLUME 85.7 fL (80-94); MONOCYTES # (AUTO) 0.4 K/uL (0.8-1.0); MONOCYTES % (AUTO) 4.4 % (1.7-9.3); NEUTROPHILS # (AUTO) 7.6 K/uL (1.8-7.7); PLATELET COUNT (AUTO) 328 K/uL (140-450); RED BLOOD CELL COUNT(AUTO) 3.45 MIL/uL (4.20-5.40); WHITE BLOOD COUNT (AUTO) 8.9 K/uL (4.8-10.8)
[2023-10-05] MEDS: VIT-B COMP/VIT-C/FOLIC ACID 1 TAB PO SCH (08:58)
[2023-10-05 09:06] LABS: ALBUMIN 1.1 g/dL (3.4-5.0); ANION GAP 17.3 (8-16); CALCIUM 7.6 mg/dL (8.5-10.1); CARBON DIOXIDE 23.5 mmol/L (21-32); CREATININE 3.6 mg/dL (0.6-1.3); MAGNESIUM 1.9 mg/dL (1.8-2.4); PHOSPHORUS 7.1 mg/dL (2.5-4.9); POTASSIUM 4.8 mmol/L (3.5-5.1); TOTAL BILIRUBIN 0.2 mg/dL (0.0-1.0); TOTAL PROTEIN, SERUM 5.7 g/dL (6.4-8.2)
[2023-10-05] MEDS: ALBUTEROL SULFATE/IPRATROPIU 3 ML SOL IH PRN (10:06)
[2023-10-05] MEDS: carvediloL 6.25 MG TAB PO SCH (12:16)
[2023-10-05] MEDS ORDERED: HYDR-4420 PO (15:41)
[2023-10-05] MEDS ORDERED: CARV6.252 PO (15:41)
[2023-10-05] MEDS ORDERED: CALC667C3 PO (15:41)
[2023-10-05] MEDS ORDERED: NEP PO (15:41)
[2023-10-05] MEDS ORDERED: ATOR20TA40 PO (15:41)
[2023-10-05] MEDS: LOPERAMIDE 2 MG CAP PO SCH (17:34)
[2023-10-07 13:31] LABS: HEPATITIS A ANTIBODY TOTAL Positive (Negative)
== END 2023-10-05 17:50 | disposition home health service (06) | DRG 469 ==
LOC: MED 11:23 → MIC 15:38 → MTU 10-03 20:34
PROVIDERS: ADMIT Internal Medicine; ATTEND Internal Medicine
PROC: 02HV33Z Insertion of Infusion Device into Superior Vena Cava, Percutaneous Approach (ICD-10-PCS; 2023-10-02)
PROC: B548ZZA Ultrasonography of Superior Vena Cava, Guidance (ICD-10-PCS; 2023-10-02)
PROC: 5A1D70Z Performance of Urinary Filtration, Intermittent, Less than 6 Hours Per Day (ICD-10-PCS; 2023-10-02)
PROC: 5A1D70Z Performance of Urinary Filtration, Intermittent, Less than 6 Hours Per Day (ICD-10-PCS; 2023-10-02)
PROC: 30233N1 Transfusion of Nonautologous Red Blood Cells into Peripheral Vein, Percutaneous Approach (ICD-10-PCS; 2023-10-03)
PROC: 05HM33Z Insertion of Infusion Device into Right Internal Jugular Vein, Percutaneous Approach (ICD-10-PCS; 2023-10-04)
PROC: B513ZZA Fluoroscopy of Right Jugular Veins, Guidance (ICD-10-PCS; 2023-10-04)
PROC: 05PY33Z Removal of Infusion Device from Upper Vein, Percutaneous Approach (ICD-10-PCS; 2023-10-04)
PROC: 5A1D70Z Performance of Urinary Filtration, Intermittent, Less than 6 Hours Per Day (ICD-10-PCS; 2023-10-04)
PROC: 0JH63XZ Insertion of Tunneled Vascular Access Device into Chest Subcutaneous Tissue and Fascia, Percutaneous Approach (ICD-10-PCS; principal; 2023-10-04 11:00)
DX: N17.9 Acute kidney failure, unspecified (principal); U07.1 COVID-19; I50.33 Acute on chronic diastolic (congestive) heart failure; E43 Unspecified severe protein-calorie malnutrition; D62 Acute posthemorrhagic anemia; I13.2 Hypertensive heart and chronic kidney disease with heart failure and with stage 5 chronic kidney disease, or end stage renal disease; E87.5 Hyperkalemia; Z68.29 Body mass index [BMI] 29.0-29.9, adult; E11.22 Type 2 diabetes mellitus with diabetic chronic kidney disease; N18.6 End stage renal disease; Z99.2 Dependence on renal dialysis; E78.5 Hyperlipidemia, unspecified; Z90.49 Acquired absence of other specified parts of digestive tract; Z88.5 Allergy status to narcotic agent
CPT/HCPCS: 36415; 36430; 71045; 80048; 80053; 80076; 81001; 82728; 82948; 83540; 83690; 83735; 84100; 84484; 84703; 85018; 85025; 86704; 86706; 86708; 86709; 86803; 86886; 86900; 86901; 86920; 87081; 87340; 93005; 94640; 96374; 96375; 99291; C1894; J0610; J1100; J1644; J1815; J2001; J2405; J3490; J7613; P9016; Q0092; Q5106

== ENCOUNTER 2024-05-14 05:35 | Inpatient (IN) | payer OTHER ==
[~2024-05-14] VITALS: Ht 157.5 cm; Wt 59.0 kg
[2024-05-14] VITALS (9 sets, daily range): BP systolic 168–189; BP diastolic 84–101; PULSE 65–106; RESP 15–20; TEMP 97.5–99; O2SAT 95–100
[~2024-05-14 05:35] MED LIST changes: -ATOR10TA PO; +ATOR20TA40 PO; +CALC667C3 PO; +CARV6.252 PO; +FURO40TA9 PO; -HYDR-1098 PO; +HYDR-5856 PO; +HYDR-732 PO; +INSU100I16 SUBQ; +LOSA25TA32 PO; +NEP PO; +ONDA4TAB12 PO; +POTA20TA49 PO
[2024-05-14 07:11] LABS: BLOOD GAS HCO3 25.6 mmol/L (22-26); BLOOD GAS PCO2 43.8 mmHg (35-45); BLOOD GAS PH 7.385 (7.35-7.45); BLOOD GAS PO2 71.9 mmHg (75-100)
[2024-05-14 07:12] LABS: BLOOD GAS BASE EXCESS 0.4 mmol/L (-2.0-2.0); BLOOD GAS O2 SAT% 94.7 % (92.0-98.5)
[2024-05-14 07:27] LABS: ALBUMIN 2.8 g/dL (3.4-5.0); ANION GAP 13.4 (8-16); CALCIUM 8.6 mg/dL (8.5-10.1); CARBON DIOXIDE 25.4 mmol/L (21-32); POTASSIUM 4.8 mmol/L (3.5-5.1); TOTAL BILIRUBIN 0.5 mg/dL (0.0-1.0); TOTAL PROTEIN, SERUM 6.8 g/dL (6.4-8.2)
[2024-05-14 07:29] LABS: CREATININE 4.3 mg/dL (0.6-1.3)
[2024-05-14 07:31] LABS: BASOPHILS % (AUTO) 0.2 % (0.0-2.0); EOSINOPHILS # (AUTO) 0.1 K/uL (0-0.4); EOSINOPHILS % (AUTO) 0.8 % (0.0-4.0); HEMATOCRIT 29.8 % (36-48); HEMOGLOBIN 9.9 g/dL (12.0-16.0); LYMPHOCYTES # (AUTO) 0.7 K/uL (2.5-16.5); LYMPHOCYTES % (AUTO) 8.5 % (20.5-51.1); MEAN CORPUSCULAR HEMOGLOBIN 30 pg (27-31); MEAN CORPUSCULAR HGB CONC 33 g/dL (33-37); MONOCYTES # (AUTO) 0.5 K/uL (0.8-1.0); MONOCYTES % (AUTO) 5.5 % (1.7-9.3); NEUTROPHILS # (AUTO) 7.2 K/uL (1.8-7.7); PLATELET COUNT (AUTO) 191 K/uL (140-450); RED BLOOD CELL COUNT(AUTO) 3.35 MIL/uL (4.20-5.40); RED CELL DISTRIBUTION WIDTH 16.2 % (11.6-13.7); WHITE BLOOD COUNT (AUTO) 8.5 K/uL (4.8-10.8)
[2024-05-14 07:52] LABS: FLU A ANTIGEN negative (NEGATIVE); FLU B ANTIGEN negative (NEGATIVE)
[2024-05-14] MEDS: ASPIRIN 81 MG TAB.CHEW PO ONE (08:01)
[2024-05-14] MEDS: INSULIN REGULAR, HUMAN 100 UNIT/ML VIAL SUBQ ONE (08:02)
[2024-05-14] MEDS: ALBUTEROL SULFATE/IPRATROPIU 3 ML SOL IH ONE (08:20)
[2024-05-14] MEDS ORDERED: HYDROcodone/APAP 5/325 MG 1 TAB TAB PO PRN (10:00)
[2024-05-14] MEDS ORDERED: ONDANSETRON 4 MG/2 ML VIAL IVP PRN (10:00)
[2024-05-14] MEDS ORDERED: LORazepam 1 MG TAB PO PRN (10:00)
[2024-05-14] MEDS ORDERED: ZOLPIDEM 5 MG TAB PO PRN (10:00)
[2024-05-14] MEDS ORDERED: DEXTROSE 50% 50 ML SYR IVP PRN (10:55)
[2024-05-14] MEDS: INSULIN LISPRO SLIDING SCALE 100 UNITS/ML VIAL SUBQ PRN (10:55)
[2024-05-14] MEDS: INSULIN LANTUS 100 UNITS/ML 10 ML VIAL SUBQ SCH (10:57)
[2024-05-14] MEDS: INSULIN LISPRO 100 UNITS/ML VIAL SUBQ SCH (11:30)
[2024-05-14] MEDS ORDERED: INSULIN LISPRO 100 UNITS/ML VIAL SUBQ ONE (11:30)
[2024-05-14] MEDS: BLOOD GLUCOSE MONITORING 1 DEV DEV FS SCH (12:21)
[2024-05-14] MEDS: hydrALAZINE 25 MG TAB PO SCH (12:54)
[2024-05-14] MEDS: GABAPENTIN 300 MG CAP PO SCH (12:54)
[2024-05-14] MEDS: carvediloL 6.25 MG TAB PO SCH (21:00)
[2024-05-14] MEDS: ATORVASTATIN 20 MG TAB PO SCH (23:12)
[2024-05-15] VITALS (14 sets, daily range): BP systolic 120–166; BP diastolic 67–80; PULSE 78–99; RESP 16–18; TEMP 97.5–98.6; O2SAT 87–100
[2024-05-15 06:13] LABS: BASOPHILS % (AUTO) 0.2 % (0.0-2.0); EOSINOPHILS % (AUTO) 0.5 % (0.0-4.0); HEMOGLOBIN 10.2 g/dL (12.0-16.0); LYMPHOCYTES # (AUTO) 1.1 K/uL (2.5-16.5); LYMPHOCYTES % (AUTO) 13.1 % (20.5-51.1); MEAN CORPUSCULAR HEMOGLOBIN 29 pg (27-31); MEAN CORPUSCULAR HGB CONC 33 g/dL (33-37); MEAN CORPUSCULAR VOLUME 87.2 fL (80-94); MONOCYTES # (AUTO) 0.6 K/uL (0.8-1.0); MONOCYTES % (AUTO) 7.6 % (1.7-9.3); NEUTROPHILS # (AUTO) 6.4 K/uL (1.8-7.7); NEUTROPHILS % (AUTO) 78.6 % (42.2-75.2); PLATELET COUNT (AUTO) 204 K/uL (140-450); RED BLOOD CELL COUNT(AUTO) 3.55 MIL/uL (4.20-5.40); RED CELL DISTRIBUTION WIDTH 16.4 % (11.6-13.7); WHITE BLOOD COUNT (AUTO) 8.1 K/uL (4.8-10.8)
[2024-05-15 06:31] LABS: ALBUMIN 2.3 g/dL (3.4-5.0); ANION GAP 11.4 (8-16); CALCIUM 8.5 mg/dL (8.5-10.1); CARBON DIOXIDE 28.2 mmol/L (21-32); CREATININE 3.5 mg/dL (0.6-1.3); MAGNESIUM 2.1 mg/dL (1.8-2.4); POTASSIUM 4.6 mmol/L (3.5-5.1); TOTAL BILIRUBIN 0.6 mg/dL (0.0-1.0); TOTAL PROTEIN, SERUM 6.3 g/dL (6.4-8.2)
[2024-05-15] MEDS: DOCUSATE SODIUM 100 MG GELCAP PO SCH (09:00)
[2024-05-15] MEDS: LOSARTAN 25 MG TAB PO SCH (09:28)
[2024-05-15] MEDS: FUROSEMIDE 40 MG TAB PO SCH (09:28)
[2024-05-15] MEDS: hydroCHLOROthiazide 25 MG TAB PO SCH (09:29)
[2024-05-15] MEDS: ACETAMINOPHEN 325 MG TAB PO PRN (19:57)
[2024-05-15] MEDS: MEDS-TO-BEDS MC SCH (20:22)
[2024-05-16] VITALS (7 sets, daily range): BP systolic 140–148; BP diastolic 70–78; PULSE 70–74; RESP 18; TEMP 96–97.4; O2SAT 74–98
[2024-05-16 07:35] LABS: HEMATOCRIT 29.5 % (36-48); HEMOGLOBIN 9.7 g/dL (12.0-16.0); MEAN CORPUSCULAR HEMOGLOBIN 29 pg (27-31); MEAN CORPUSCULAR HGB CONC 33 g/dL (33-37); MEAN CORPUSCULAR VOLUME 88.1 fL (80-94); PLATELET COUNT (AUTO) 203 K/uL (140-450); RED BLOOD CELL COUNT(AUTO) 3.35 MIL/uL (4.20-5.40); RED CELL DISTRIBUTION WIDTH 16.9 % (11.6-13.7); WHITE BLOOD COUNT (AUTO) 6.9 K/uL (4.8-10.8)
[2024-05-16 07:51] LABS: ALBUMIN 2.4 g/dL (3.4-5.0); ANION GAP 13.8 (8-16); CALCIUM 8.3 mg/dL (8.5-10.1); CARBON DIOXIDE 24.6 mmol/L (21-32); MAGNESIUM 2.1 mg/dL (1.8-2.4); POTASSIUM 4.4 mmol/L (3.5-5.1); TOTAL BILIRUBIN 0.5 mg/dL (0.0-1.0); TOTAL PROTEIN, SERUM 6.3 g/dL (6.4-8.2)
[2024-05-16 08:38] LABS: LYMPHOCYTES % (MANUAL) 6 % (20-46); MONOCYTES % (MANUAL) 6 % (5-12)
[2024-05-16 08:39] LABS: ANISOCYTOSIS 1+
[2024-05-16] MEDS ORDERED: GABA300C PO (15:43)
== END 2024-05-16 17:00 | disposition home or self-care (01) | DRG 133 ==
LOC: MED 05:35 → MTU 09:57
PROVIDERS: ADMIT Hospitalist; ATTEND Hospitalist
PROC: 5A1D70Z Performance of Urinary Filtration, Intermittent, Less than 6 Hours Per Day (ICD-10-PCS; principal; 2024-05-14)
PROC: 5A1D70Z Performance of Urinary Filtration, Intermittent, Less than 6 Hours Per Day (ICD-10-PCS; 2024-05-15)
DX: J96.01 Acute respiratory failure with hypoxia (principal); E11.00 Type 2 diabetes mellitus with hyperosmolarity without nonketotic hyperglycemic-hyperosmolar coma (NKHHC); I50.33 Acute on chronic diastolic (congestive) heart failure; E44.0 Moderate protein-calorie malnutrition; D63.8 Anemia in other chronic diseases classified elsewhere; E87.1 Hypo-osmolality and hyponatremia; E83.39 Other disorders of phosphorus metabolism; I43 Cardiomyopathy in diseases classified elsewhere; N18.6 End stage renal disease; I13.2 Hypertensive heart and chronic kidney disease with heart failure and with stage 5 chronic kidney disease, or end stage renal disease; K21.9 Gastro-esophageal reflux disease without esophagitis; E11.40 Type 2 diabetes mellitus with diabetic neuropathy, unspecified; Z20.822 Contact with and (suspected) exposure to COVID-19; E11.22 Type 2 diabetes mellitus with diabetic chronic kidney disease; E78.5 Hyperlipidemia, unspecified; Z88.5 Allergy status to narcotic agent; Z79.899 Other long term (current) drug therapy; Z79.4 Long term (current) use of insulin; Z56.0 Unemployment, unspecified; Z68.23 Body mass index [BMI] 23.0-23.9, adult
CPT/HCPCS: 36415; 36600; 71045; 80053; 82803; 82948; 83735; 83880; 84484; 85025; 85379; 87040; 87081; 90935; 93005; 94640; 96372; 99291; J1644; J1815; Q0092

== ENCOUNTER 2024-07-16 05:16 | Inpatient (IN) | payer OTHER ==
[~2024-07-16] VITALS: Ht 144.8 cm; Wt 59.0 kg
[2024-07-16] VITALS (9 sets, daily range): BP systolic 118–198; BP diastolic 60–152; PULSE 75–115; RESP 19–22; TEMP 97.1–98.7; O2SAT 94–98
[~2024-07-16 05:16] MED LIST changes: -ATOR10TA51 PO; -CIPR500T4 PO; -LOSA-269 PO; -ONDA4TAB12 PO
[2024-07-16 05:50] LABS: BASOPHILS % (AUTO) 0.5 % (0.0-2.0); EOSINOPHILS % (AUTO) 0.6 % (0.0-4.0); HEMATOCRIT 45.4 % (36-48); HEMOGLOBIN 14.4 g/dL (12.0-16.0); LYMPHOCYTES % (AUTO) 20.6 % (20.5-51.1); MEAN CORPUSCULAR HEMOGLOBIN 29 pg (27-31); MEAN CORPUSCULAR HGB CONC 32 g/dL (33-37); MEAN CORPUSCULAR VOLUME 91.3 fL (80-94); MONOCYTES # (AUTO) 0.3 K/uL (0.8-1.0); MONOCYTES % (AUTO) 5.8 % (1.7-9.3); NEUTROPHILS # (AUTO) 3.4 K/uL (1.8-7.7); NEUTROPHILS % (AUTO) 72.5 % (42.2-75.2); PLATELET COUNT (AUTO) 140 K/uL (140-450); RED BLOOD CELL COUNT(AUTO) 4.97 MIL/uL (4.20-5.40); RED CELL DISTRIBUTION WIDTH 16.2 % (11.6-13.7); WHITE BLOOD COUNT (AUTO) 4.7 K/uL (4.8-10.8)
[2024-07-16 06:02] LABS: ANION GAP 15.3 (8-16); CARBON DIOXIDE 24.9 mmol/L (21-32); POTASSIUM 5.2 mmol/L (3.5-5.1)
[2024-07-16] MEDS: FUROSEMIDE 40 MG/4 ML VIAL IVP ONE (06:27)
[2024-07-16] MEDS: INSULIN REGULAR, HUMAN 100 UNIT/ML VIAL IV ONE ×2 (06:27→08:09)
[2024-07-16] MEDS ORDERED: IMO2 PO (06:55)
[2024-07-16] MEDS ORDERED: GABA100C PO (06:57)
[2024-07-16] MEDS ORDERED: ATOR10TA PO (07:02)
[2024-07-16] MEDS ORDERED: CALC667T8 PO (07:02)
[2024-07-16] MEDS ORDERED: MULT-1469 PO (07:02)
[2024-07-16] MEDS ORDERED: MAG SULF 2000 MG/WATER PREMIX 50 ML IV PRN (08:10)
[2024-07-16] MEDS ORDERED: ONDANSETRON 4 MG/2 ML VIAL IVP PRN (08:10)
[2024-07-16] MEDS ORDERED: DEXTROSE 50% 50 ML SYR IVP PRN (08:15)
[2024-07-16] MEDS: ASPIRIN 81 MG TAB.CHEW PO ONE (08:17)
[2024-07-16] MEDS ORDERED: cefTRIAXone 1,000 MG VIAL ONE (08:47)
[2024-07-16] MEDS ORDERED: FUROSEMIDE 100 MG/10 ML VIAL IVP SCH (09:00)
[2024-07-16] MEDS ORDERED: FUROSEMIDE 100 MG/10 ML VIAL IVP ONE (09:00)
[2024-07-16] MEDS: VIT-B COMP/VIT-C/FOLIC ACID 1 TAB PO SCH (09:10)
[2024-07-16] MEDS: carvediloL 6.25 MG TAB PO SCH (09:10)
[2024-07-16] MEDS: ATORVASTATIN 20 MG TAB PO SCH (09:11)
[2024-07-16] MEDS: DOCUSATE SODIUM 100 MG GELCAP PO SCH (09:11)
[2024-07-16] MEDS: GABAPENTIN 100 MG CAP PO SCH (09:12)
[2024-07-16] MEDS: INSULIN LANTUS 100 UNITS/ML 10 ML VIAL SUBQ SCH (09:32)
[2024-07-16] MEDS: hydrALAZINE 25 MG TAB PO SCH (10:03)
[2024-07-16] MEDS: BLOOD GLUCOSE MONITORING 1 DEV DEV FS SCH (11:30)
[2024-07-16] MEDS: INSULIN LISPRO 100 UNITS/ML VIAL SUBQ SCH (13:23)
[2024-07-16] MEDS: INSULIN LISPRO SLIDING SCALE 100 UNITS/ML VIAL SUBQ PRN (13:24)
[2024-07-16] MEDS: FUROSEMIDE 100 MG/10 ML VIAL IVP SCH (17:00)
[2024-07-17] VITALS (11 sets, daily range): BP systolic 131–157; BP diastolic 70–82; PULSE 76–91; RESP 16–18; TEMP 96.9–98.2; O2SAT 96–99
[2024-07-17] MEDS: ACETAMINOPHEN 325 MG TAB PO PRN (06:32)
[2024-07-17 06:40] LABS: BASOPHILS % (AUTO) 0.3 % (0.0-2.0); EOSINOPHILS # (AUTO) 0.1 K/uL (0-0.4); EOSINOPHILS % (AUTO) 1.4 % (0.0-4.0); HEMATOCRIT 38.6 % (36-48); HEMOGLOBIN 12.7 g/dL (12.0-16.0); LYMPHOCYTES # (AUTO) 1.2 K/uL (2.5-16.5); LYMPHOCYTES % (AUTO) 18.5 % (20.5-51.1); MEAN CORPUSCULAR HEMOGLOBIN 29 pg (27-31); MEAN CORPUSCULAR HGB CONC 33 g/dL (33-37); MEAN CORPUSCULAR VOLUME 87.7 fL (80-94); MONOCYTES # (AUTO) 0.4 K/uL (0.8-1.0); MONOCYTES % (AUTO) 6.9 % (1.7-9.3); NEUTROPHILS # (AUTO) 4.6 K/uL (1.8-7.7); NEUTROPHILS % (AUTO) 72.9 % (42.2-75.2); PLATELET COUNT (AUTO) 140 K/uL (140-450); RED CELL DISTRIBUTION WIDTH 15.9 % (11.6-13.7); WHITE BLOOD COUNT (AUTO) 6.3 K/uL (4.8-10.8)
[2024-07-17 07:42] LABS: ANION GAP 9.7 (8-16); CALCIUM 8.1 mg/dL (8.5-10.1); CARBON DIOXIDE 30.5 mmol/L (21-32); CREATININE 3.6 mg/dL (0.6-1.3); POTASSIUM 4.2 mmol/L (3.5-5.1)
[2024-07-17] MEDS: MEDS-TO-BEDS MC SCH (20:49)
[2024-07-18] VITALS (7 sets, daily range): BP systolic 132–151; BP diastolic 65–85; PULSE 70–92; RESP 18–19; TEMP 97.3–98.6; O2SAT 95–99
[2024-07-18 07:01] LABS: BASOPHILS % (AUTO) 0.4 % (0.0-2.0); EOSINOPHILS # (AUTO) 0.1 K/uL (0-0.4); EOSINOPHILS % (AUTO) 1.6 % (0.0-4.0); HEMATOCRIT 37.3 % (36-48); HEMOGLOBIN 12.2 g/dL (12.0-16.0); LYMPHOCYTES # (AUTO) 1.7 K/uL (2.5-16.5); LYMPHOCYTES % (AUTO) 32.7 % (20.5-51.1); MEAN CORPUSCULAR HEMOGLOBIN 29 pg (27-31); MEAN CORPUSCULAR HGB CONC 33 g/dL (33-37); MEAN CORPUSCULAR VOLUME 87.8 fL (80-94); MONOCYTES # (AUTO) 0.5 K/uL (0.8-1.0); NEUTROPHILS # (AUTO) 2.9 K/uL (1.8-7.7); NEUTROPHILS % (AUTO) 56.3 % (42.2-75.2); PLATELET COUNT (AUTO) 146 K/uL (140-450); RED BLOOD CELL COUNT(AUTO) 4.25 MIL/uL (4.20-5.40); RED CELL DISTRIBUTION WIDTH 15.5 % (11.6-13.7); WHITE BLOOD COUNT (AUTO) 5.1 K/uL (4.8-10.8)
[2024-07-18 07:57] LABS: ANION GAP 8.9 (8-16); CALCIUM 8.2 mg/dL (8.5-10.1); CARBON DIOXIDE 29.1 mmol/L (21-32); CREATININE 3.2 mg/dL (0.6-1.3)
[2024-07-18] MEDS ORDERED: CEFD300C3 PO (12:24)
[2024-07-18] MEDS: FUROSEMIDE 40 MG TAB PO SCH (17:25)
== END 2024-07-18 19:05 | disposition home or self-care (01) | DRG 133 ==
LOC: MED 05:16 → MTU 08:13
PROVIDERS: ADMIT Student in an Organized Health Care Education/Training Program; ATTEND Student in an Organized Health Care Education/Training Program
PROC: 5A1D70Z Performance of Urinary Filtration, Intermittent, Less than 6 Hours Per Day (ICD-10-PCS; principal; 2024-07-16)
DX: J96.01 Acute respiratory failure with hypoxia (principal); E11.00 Type 2 diabetes mellitus with hyperosmolarity without nonketotic hyperglycemic-hyperosmolar coma (NKHHC); I50.43 Acute on chronic combined systolic (congestive) and diastolic (congestive) heart failure; J81.0 Acute pulmonary edema; I12.0 Hypertensive chronic kidney disease with stage 5 chronic kidney disease or end stage renal disease; R65.10 Systemic inflammatory response syndrome (SIRS) of non-infectious origin without acute organ dysfunction; N18.6 End stage renal disease; E87.1 Hypo-osmolality and hyponatremia; E11.22 Type 2 diabetes mellitus with diabetic chronic kidney disease; E87.70 Fluid overload, unspecified; K21.9 Gastro-esophageal reflux disease without esophagitis; I16.0 Hypertensive urgency; Z99.2 Dependence on renal dialysis; Z88.5 Allergy status to narcotic agent; Z79.899 Other long term (current) drug therapy
CPT/HCPCS: 36415; 71045; 80048; 82948; 83735; 83880; 84484; 85025; 90935; 93005; 96374; 96375; 96376; 99285; J0696; J1644; J1815; J1940; J7060; Q0092